=== PATIENT | male | born 1945 | race Caucasian/White ===

== ENCOUNTER → 2017-05-02 | Outpatient (CLI) | payer MEDICARE, BC ==
[2017-05-02 09:15] LABS: BASO % 0 % (0-3); EOS # 0.1 x10^3/uL (0.0-0.7); EOS % 1 % (0-3); HEMATOCRIT 42.4 % (39.0-53.0); HEMOGLOBIN 14.4 g/dL (13.0-17.5); LYMPH # 0.6 x10^3/uL (1.0-4.8); LYMPH % 9 % (24-48); MEAN CORPUSCULAR HEMOGLOBIN 32 pg (25-35); MEAN CORPUSCULAR HGB CONC 34 g/dL (31-37); MEAN CORPUSCULAR VOLUME 94 fL (79-100); MONO # 0.3 x10^3/uL (0.0-1.1); MONO % 4 % (0-9); NEUT # 6.1 x10^3uL (1.8-7.7); NEUT % 86 % (31-73); PLATELET COUNT 194 x10^3/uL (140-400); RED BLOOD COUNT 4.49 x10^6/uL (4.30-5.70); WHITE BLOOD COUNT 7.1 x10^3/uL (4.0-11.0)
[2017-05-02 09:22] LABS: ALBUMIN 3.2 g/dL (3.4-5.0); CALCIUM 8.5 mg/dL (8.5-10.1); CREATININE 1.3 mg/dL (0.7-1.3); GFR 54.7; POTASSIUM 3.5 mmol/L (3.5-5.1); TOTAL BILIRUBIN 0.4 mg/dL (0.2-1.0); TOTAL PROTEIN 6.4 g/dL (6.4-8.2)
[2017-05-02 10:20] LABS: SEDIMENTATION RATE 6 (0-15)
== END | disposition home or self-care (01) ==
LOC: PMG 08:23
PROVIDERS: ATTEND Physician Assistant
DX: R10.9 Unspecified abdominal pain (principal)
CPT/HCPCS: 36415; 80053; 82150; 83690; 85025; 85651

== ENCOUNTER 2019-08-27 08:49 | Inpatient (IN) | payer MEDICARE, BC ==
[~2019-08-27] VITALS: Ht 182.9 cm; Wt 89.5 kg
[2019-08-27] VITALS (12 sets, daily range): BP systolic 82–145; BP diastolic 50–81
[2019-08-27] MEDS ORDERED: IV NORMAL SALINE 1,000ML 1,000 ML IV ONE ×2 (09:15→16:45)
[2019-08-27] MEDS ORDERED: ONDANSETRON PF 4 MG/2 ML VIAL. ONE (09:26)
[2019-08-27] MEDS ORDERED: ONDANSETRON PF 4 MG/2 ML VIAL. IVP ONE (09:30)
--- NOTE | 2019-08-27 09:44 | PHYS DOC ---
Past History Past Medical History: Asthma, GERD, Other Additional Past Medical Histor: LOW TESTERONE Past Surgical History: Other Additional Past Surgical Histo: WRIST SURGERY Alcohol Use: None General Adult EDM: Chief Complaint: FEVER HPI: HPI: 73-year-old male presents with fever. The patient had a prostate biopsy as an outpatient yesterday. About midnight, the patient woke up with chills and thought he might of a fever. He measured a fever of 101. He did not take any antipyretics. When he woke up this morning, he still was feeling chilled and had a runny nose. He is breathing faster than normal, but denies shortness of breath. He does not have a cough. His temperature on arrival was 99. The patient did take prophylactic Levaquin before and after the procedure. He denies any significant rectal pain, discharge or bleeding. He has no known COVID 19 exposures or risk factors. He has been out of the house, going to the store a few times. Review of Systems: Review of Systems: Constitutional: Fever and chills Eyes: Denies change in visual acuity HENT: Runny nose Respiratory: Denies cough or shortness of breath Cardiovascular: Denies chest pain or edema GI: Nausea. Denies abdominal pain, vomiting, bloody stools or diarrhea : Denies dysuria Musculoskeletal: Denies back pain or joint pain Integument: Denies rash Neurologic: Denies headache, focal weakness or sensory changes Endocrine: Denies polyuria or polydipsia Lymphatic: Denies swollen glands Psychiatric: Denies depression or anxiety Heart Score: Risk Factors: Risk Factors: DM, Current or recent (<one month) smoker, HTN, HLP, family history of CAD, obesity. Risk Scores: Score 0 - 3: 2.5% MACE over next 6 weeks - Discharge Home Score 4 - 6: 20.3% MACE over next 6 weeks - Admit for Clinical Observation Score 7 - 10: 72.7% MACE over next 6 weeks - Early Invasive Strategies Current Medications: Current Meds: Current Medications Medications (Trade) Dose Ordered Sig/Lorelei Start Time Stop Time Status Last Admin Dose Admin Ondansetron HCl (Zofran) 4 mg STK-MED ONCE 08/27/19 09:26 08/27/19 09:26 DC Sodium Chloride 1,000 ml @ 1,000 mls/hr 1X ONCE 08/27/19 09:15 08/27/19 10:14 Allergies: Allergies: Allergies Coded Allergies Type Severity Reaction Last Updated Verified No Known Drug Allergies 08/27/19 No Physical Exam: PE: Constitutional: Well developed, well nourished, no acute distress, non-toxic appearance. [] HENT: Normocephalic, atraumatic, bilateral external ears normal, oropharynx moist, no oral exudates, nose normal. [] Eyes: PERRLA, EOMI, conjunctiva normal, no discharge. [] Neck: Normal range of motion, no tenderness, supple, no stridor. [] Cardiovascular:Heart rate 107, regular rhythm, no murmur [] Lungs & Thorax: breathing 25x a minute, regular, without difficulty. Bilateral breath sounds clear to auscultation [] Abdomen: Bowel sounds normal, soft, no tenderness, no masses, no pulsatile masses. [] Skin: Warm, dry, no erythema, no rash. [] Back: No tenderness, no CVA tenderness. [] Extremities: No tenderness, no cyanosis, no clubbing, ROM intact, no edema. [] Neurologic: Alert and oriented X 3, normal motor function, normal sensory function, no focal deficits noted. [] Psychologic: Affect normal, judgement normal, mood normal. [] Current Patient Data: Vital Signs: Vital Signs Date Time Temp Pulse Resp B/P (MAP) Pulse Ox O2 Delivery O2 Flow Rate FiO2 08/27/19 09:03 99.8 95 18 151/81 (104) 95 Room Air EKG: EKG: [] Radiology/Procedures: Radiology/Procedures: [] Impressions: CHEST AP ONLY Clinical indications: Shortness of breath. COMPARISON: July 18, 2015. Findings: No acute lung infiltrate or pleural effusion or pulmonary edema or lung mass or pneumothorax is seen. Hiatal hernia is again evident. The heart size, pulmonary vasculature, mediastinum and both carter are stable otherwise given rotation. Impression: No acute radiographic abnormality is seen. Electronically signed by: Katlyn Montero MD (08/27/2019 9:51 AM) [id number] DICTATED AND SIGNED BY: KATLYN MONTERO MD DATE: 08/27/19 0951 CC: MYNOR CORONA DO; WISAM MORROW MD ~ Course & Med Decision Making: Course & Med Decision Making Pertinent Labs and Imaging studies reviewed. (See chart for details) The patient's labs are unremarkable except for slightly elevated creatinine 1.5. The only comparison is a few years ago at 1.3. The patient does have a high respiratory rate. We have given him a liter normal saline. His heart rate has increased despite the fluids. A second recheck of his temperature was still nor mal. He was tested for coronavirus out of an abundance of caution as we are unsure why he had a fever last night and abnormal vitals today. The patient's heart rate continued to increase and the patient seemed more altered. We checked his temperature a third time and found him to have a temperature 100.5. Patient now meets sepsis criteria. I spoke with Dr. Daniels, his urologist to perform the procedure yesterday and he is concerned that the patient could develop an infection from the procedure. He has recommended Rocephin and admission. I spoke with Dr. Plasencia and he has accepted the patient for admission to the ICU. Blood cultures, lactic acid, 1 g of Rocephin, and the rest of his 30 mL/kg of actual weight fluids have been ordered. I believe he is low risk for coronavirus and this is most likely urosepsis. I feel the full fluid bolus is justified at this time. Patient also got a gram of Tylenol. 51 minutes of critical care time was spent on this patient exclusive of other billable procedures. [] Dragon Disclaimer: Dragon Disclaimer: This electronic medical record was generated, in whole or in part, using a voice recognition dictation system. Departure Departure: Impression: Primary Impression: Sepsis Qualified Codes: A41.9 - Sepsis, unspecified organism Disposition: ADMITTED INPATIENT Admitting Physician: Felicia Plasencia Condition: GUARDED Referrals: WISAM MORROW MD (PCP) Sepsis Assessment: Date and Time of Assessment Date: Aug 27, 2019 Time: 10:41 Vital Signs Vital Signs Vital Signs Date Time Temp Pulse Resp B/P (MAP) Pulse Ox O2 Delivery O2 Flow Rate FiO2 08/27/19 11:41 100.5 08/27/19 11:32 121 48 132/73 (92) 95 Room Air Respirations Respiratory Effort: Normal Respiratory Pattern: Normal Cardiovascular Pulse Rhythm: Regular HEART: No murmurs noted Lung Sounds Breath Sounds: Clear Capillary Refill Capillary Refill: Rt Hand < 3 seconds Peripheral Pulse Pulse Location: Monitor Pulse Strength: Normal (2+) Pulse Assessment Method: Monitor Integumentary Skin: Warm Skin Moisture: Dry Skin Turgor: Normal Skin Color: warm Fingernail Color: WNL Sepsis Assessment: Date and Time of Assessment Date: Aug 27, 2019 Time: 12:02 Vital Signs Vital Signs Vital Signs Date Time Temp Pulse Resp B/P (MAP) Pulse Ox O2 Delivery O2 Flow Rate FiO2 08/27/19 11:41 100.5 08/27/19 11:32 121 48 132/73 (92) 95 Room Air Respirations Respiratory Effort: Shortness of air Respiratory Pattern: Normal Cardiovascular Pulse Rhythm: Regular HEART: No murmurs noted Lung Sounds Breath Sounds: Clear Capillary Refill Capillary Refill: Rt Hand < 3 seconds Peripheral Pulse Pulse Location: Monitor Pulse Strength: Normal (2+) Pulse Assessment Method: Monitor Integumentary Skin: Warm Skin Moisture: Dry Skin Turgor: Normal Skin Color: warm Fingernail Color: WNL MYNOR CORONA DO Aug 27, 2019 09:44
--- NOTE | 2019-08-27 09:54 | RAD ---
CHEST AP ONLY Clinical indications: Shortness of breath. COMPARISON: July 18, 2015. Findings: No acute lung infiltrate or pleural effusion or pulmonary edema or lung mass or pneumothorax is seen. Hiatal hernia is again evident. The heart size, pulmonary vasculature, mediastinum and both carter are stable otherwise given rotation. Impression: No acute radiographic abnormality is seen. Electronically signed by: Joe Montero MD (08/27/2019 9:51 AM) [id number]
[2019-08-27 10:03] LABS: BASO % 0 % (0-3); EOS % 0 % (0-3); HEMATOCRIT 42.8 % (39.0-53.0); HEMOGLOBIN 14.1 g/dL (13.0-17.5); LYMPH # 0.1 x10^3/uL (1.0-4.8); LYMPH % 2 % (24-48); MEAN CORPUSCULAR HEMOGLOBIN 32 pg (25-35); MEAN CORPUSCULAR HGB CONC 33 g/dL (31-37); MEAN CORPUSCULAR VOLUME 96 fL (79-100); MONO % 0 % (0-9); NEUT # 4.4 x10^3uL (1.8-7.7); NEUT % 97 % (31-73); PLATELET COUNT 137 x10^3/uL (140-400); RED BLOOD COUNT 4.48 x10^6/uL (4.30-5.70); RED CELL DISTRIBUTION WIDTH 14.6 % (11.5-14.5); WHITE BLOOD COUNT 4.5 x10^3/uL (4.0-11.0)
[2019-08-27 10:11] LABS: CREATININE 1.5 mg/dL (0.7-1.3); GFR 46.1; POTASSIUM 4.4 mmol/L (3.5-5.1)
[2019-08-27 10:18] LABS: ALBUMIN 3.2 g/dL (3.4-5.0); ALBUMIN/GLOBULIN RATIO 1.1 (1.0-1.7)
[2019-08-27] MEDS ORDERED: PROCHLORPERAZINE 10 MG/2 ML VIAL. ONE (10:41)
[2019-08-27] MEDS ORDERED: PROCHLORPERAZINE 10 MG/2 ML VIAL. IV ONE (10:45)
[2019-08-27] MEDS ORDERED: IV NORMAL SALINE 50ML 50 ML ONE (11:26)
[2019-08-27] MEDS ORDERED: cefTRIAXone SODIUM 1 GM VIAL ONE (11:26)
[2019-08-27] MEDS ORDERED: IOHEXOL 300 MG/ML 75 ML VIAL. IV ONE (11:30)
[2019-08-27] MEDS ORDERED: ACETAMINOPHEN 500 MG TABLET PO ONE ×2 (11:56→12:00)
[2019-08-27] MEDS ORDERED: NORMAL SALINE IV SCH (12:15)
--- NOTE | 2019-08-27 12:19 | RAD ---
CT ABD PELV W/ IV CONTRST ONLY History: Fever. Recent prostate biopsy. Technique: After the administration of intravenous contrast, CT imaging was performed of the abdomen and pelvis. Multiplanar images are reviewed. Exposure: One or more of the following individualized dose reduction techniques were utilized for this examination: 1. Automated exposure control 2. Adjustment of the mA and/or kV according to patient size 3. Use of iterative reconstruction technique. Comparison: None Findings: Evaluation degraded by respiratory motion. Lower chest: No consolidation or pleural effusion. Moderate hiatal hernia. Of fluid within the distal esophagus. Abdomen and pelvis: Right hepatic lobe cyst measures 6.7 cm. Additional tiny left hepatic lobe hypodensity, too small to further characterize. The spleen, adrenal glands, pancreas and gallbladder are unremarkable. No biliary ductal dilatation. Mild nonspecific perinephric stranding. No hydronephrosis. No intrarenal calculi. Mild urinary bladder wall thickening. Enlarged prostate with calcifications tissues up to 6.6 x 5.2 cm. There is inflammatory changes adjacent to the prostate within the pelvis. Normal appendix. No evidence of bowel obstruction. No pathologic lymphadenopathy. No ascites. Bones: No pathologic osseous lesions. Impression: 1. Enlarged prostate with adjacent inflammatory changes, may indicate prostatitis. 2. Mild urinary bladder wall thickening, may relate to chronic outlet obstruction. Correlate for cystitis. 3. Mild nonspecific bilateral perinephric stranding, may relate to patient's age. Correlate for infection. 4. Hiatal hernia with fluid in the distal esophagus likely related to reflux. Electronically signed by: Elvin Baez DO (08/27/2019 12:15 PM) [id number]
[2019-08-27 12:42] LABS: CLARITY,URINE TURBID; COLOR,URINE RED
[2019-08-27 12:44] LABS: BACTERIA,URINE FEW /HPF (0-FEW); RBC,URINE TNTC /HPF (0-2); SQUAMOUS EPITHELIAL CELL,UR FEW /LPF
[2019-08-27] MEDS ORDERED: LANS30CA66 PO (13:11)
[2019-08-27] MEDS ORDERED: ALBU2.5V8 IH (13:11)
[2019-08-27] MEDS ORDERED: TEST200V3 IM (13:11)
[2019-08-27] MEDS ORDERED: ALBUTEROL SULFATE 2.5 MG/3 ML NEBU. IH PRN (13:45)
--- NOTE | 2019-08-27 13:45 | NUR ---
The patient, ARIE MARTINEZ, 73 y/o, M admitted by ETHAN STERLING MD, was given written information regarding hospital policies, unit procedures and contact persons. Valuables were checked and left in room. Patient oriented to unit and call light system. Dr sterling notified of arrival and of CTA. Remains on Fluid bolus on arrival to unit per sepsis protocol. Will obtain vitals per protocol
--- NOTE | 2019-08-27 14:13 | NUR ---
Patient resting in bed at this time, Dr Plasencia here to see patient and stated he is currently to sleepy to discuss information at this time. Patient received Ativan prior to arrival to unit. Per ED patient was urinating in sink, confused and anxious. Per ANDER Terrell during arrival to unit, Patient was cooperative with care and able to communicate nurses answers appropriately.
[2019-08-27] MEDS: IV NORMAL SALINE 1,000ML 1,000 ML IV SCH ×2 (15:15→23:00)
--- NOTE | 2019-08-27 15:29 | HP ---
ADMIT DATE: 08/27/2019 HISTORY OF PRESENT ILLNESS: The patient is a 73-year-old patient who presented to the Emergency Room with complaint of fever. He apparently had a prostate biopsy as an outpatient yesterday. About midnight, the patient woke up with chills and he thought he might have a fever. He measured, his temperature was 101. He did not take any antibiotics. When he woke up this morning, he still was feeling chilled and had a runny nose. He is breathing faster than normal, but denies any shortness of breath. He does not have any cough. His temperature on arrival was 99. He had prophylactic Levaquin before and after the procedure. He denies any significant rectal pain, discharge or bleeding. He has no known COVID-19 exposure risk factors, has been out of the house going to store a few times. He was extensively investigated in the Emergency Room. His chest x-ray showed no acute radiographic abnormalities seen. Has had lab work done, showed his white cell count was normal. He has thrombocytopenia. His chemistry showed that he has had impaired kidney function, has also lactic acidosis and his urinalysis showed too numerous to count rbc's, as well as 5-10 wbc's and few bacteria. Apparently, the ER physician spoke with Dr. Lima, his urologist who performed a biopsy yesterday and he was concerned that the patient could develop an infection from the procedure and has recommended Rocephin on admission and therefore, the patient was admitted with sepsis, with lactic acidosis, likely due to urinary tract infection. He was also started on 30 mL ____ fluid ordered. Unfortunately, he apparently was given 1 mg of Ativan prior to transfer to the ICU, and I could not really get much information from him. However, was more awake when the nursing staff asked him and apparently he is known to have bronchial asthma, gastroesophageal reflux disease, hypogonadism, and benign prostatic hypertrophy. PAST SURGICAL HISTORY: Significant for carpal tunnel syndrome as well as recent prostate biopsy. ALLERGIES: He has no known drug allergies. MEDICATIONS: He is currently on albuterol sulfate 2 puffs every 4-6 hours, lansoprazole 30 mg daily and testosterone cypionate 200 mg 1 mL vial every 2 weeks. FAMILY HISTORY: Unremarkable. SOCIAL HISTORY: He is , has grown up children. He has never smoked, does not drink alcohol or use any recreational drugs. PHYSICAL EXAMINATION: GENERAL: On arrival to the Emergency Room, he was well-developed, well-nourished, in no acute distress. There was no pallor, jaundice, cyanosis or thyromegaly. No jugular venous distention or limb edema. VITAL SIGNS: His heart rate was 95, blood pressure 151/81, temperature was 99.8, respiratory rate was 18 and oxygen saturation was 95%. HEAD, EYES, EARS, NOSE AND THROAT: Normocephalic, atraumatic. NECK: Supple. HEART: Showed normal first and second heart sounds. No gallop or murmur. CHEST: Clear to auscultation. No crepitation or rhonchi. ABDOMEN: Distended, soft, nontender. No guarding or rigidity. No organomegaly. All hernial orifice intact. Bowel sounds normal. NEUROLOGIC: He was very lethargic as well as given 1 mg of Ativan; however, all his cranial nerves seem to be grossly intact. EXTREMITIES: He moves extremities without difficulty. LABORATORY DATA: His lab work on arrival to the Emergency Room showed a white cell count 4500, hemoglobin 14, hematocrit 42, MCV 96, and platelet count 257,000 with manual differential showed 97% polymorphs, 2% lymphocytes. His chemistry showed a serum sodium 139, potassium 4.4, chloride 105, bicarbonate 27, anion gap of 7, BUN 22, creatinine 1.5, estimated GFR was 56 mL per minute. His glucose 165. Lactic acid was 3.2, calcium was 8. Total bilirubin, AST, ALT, alkaline phosphatase were normal. Total protein 6, albumin was 3.2. Urinalysis showed the urine was red with too numerous to count rbc's, 5-10 wbc's, very few bacteria. His chest x-ray showed no acute lung infiltrate or pleural effusion, pulmonary edema or lung mass or pneumothorax is seen. Hiatal hernia is again evident. The heart size, pulmonary vasculature, mediastinum and both carter are stable, otherwise ____. We did a CT scan of the abdomen and pelvis with IV contrast, which basically showed that there is enlarged prostate with adjacent inflammatory changes and indicate prostatitis. IMPRESSION AND PLAN: 1. Mild urinary bladder wall thickening, may relate to chronic outlet obstruction. He has also mild nonspecific bilateral perinephric stranding, may relate to the patient's age and hiatal hernia with fluid in the distal esophagus, likely related to reflux. The patient was admitted with diagnosis of urosepsis due to urinary tract infection with lactic acidosis, After obtaining the appropriate cultures, he was started on IV Rocephin together with IV fluid. Other medical problems include Bronchial asthma. 2. Gastroesophageal reflux disease, hepatitis C, and hypogonadism. 3. Benign prostatic hypertrophy. I will reconcile all his medication. We will continue with IV fluid and also IV Rocephin. ETHAN STERLING MD DR: CATA/brown JOB#: [id number] / [id number]
[2019-08-27] MEDS: ACETAMINOPHEN 325 MG TABLET PO PRN ×2 (16:09→23:00)
[2019-08-27] MEDS ORDERED: NOREPINEPHRINE BITARTRATE 8 MG in IV DEXTROSE 5% 250 ML IV PRN (16:45)
--- NOTE | 2019-08-27 17:57 | NUR ---
Patient blood pressure decreased 80/50s, patient stable and appears to not be in any distress. Patient O2 low 90s, placed on 2l NC and increased to 95%. Notified Dr Plasencia of patients blood pressure, stated patient in finishing 2753 fluid bolus and has 753 left. Orders to give 1L NS bolus and change patient to zosyn, dc rocephin and place [address] cath with CBI due to blood tinged urine.
--- NOTE | 2019-08-27 18:03 | NUR ---
Orders also for PRN Levophed if fluid bolus does not help patients BP. Patient Vitals stable at this time. Patient sitting up eating supper at this time and is asking for his phone.
[2019-08-27] MEDS: PIPERACILLIN/TAZOBACTAM 3.375 GM in IV NORMAL SALINE 50ML 50 ML IV SCH ×2 (18:18→23:01)
[2019-08-28] VITALS (24 sets, daily range): BP systolic 88–132; BP diastolic 53–78
[2019-08-28 05:05] LABS: HEMATOCRIT 40.3 % (39.0-53.0); RED BLOOD COUNT 4.22 x10^6/uL (4.30-5.70); RED CELL DISTRIBUTION WIDTH 15.1 % (11.5-14.5); WHITE BLOOD COUNT 12.6 x10^3/uL (4.0-11.0)
[2019-08-28] MEDS: PIPERACILLIN/TAZOBACTAM 3.375 GM in IV NORMAL SALINE 50ML 50 ML IV SCH ×2 (05:49→13:44)
[2019-08-28] MEDS: IV NORMAL SALINE 1,000ML 1,000 ML IV SCH ×3 (05:50→20:48)
[2019-08-28 05:51] LABS: ALBUMIN 2.4 g/dL (3.4-5.0); ALBUMIN/GLOBULIN RATIO 0.9 (1.0-1.7); CALCIUM 7.2 mg/dL (8.5-10.1); CREATININE 2.3 mg/dL (0.7-1.3); GFR 28.2; POTASSIUM 4.6 mmol/L (3.5-5.1); TOTAL BILIRUBIN 0.6 mg/dL (0.2-1.0); TOTAL PROTEIN 5.1 g/dL (6.4-8.2)
--- NOTE | 2019-08-28 06:00 | NUR ---
Pt calm and cooperative with assessment and cares. Pt without temp higher then 99.7 this shift. HR improved, down to 70-80's when sleeping. Pt denies pain. 3-way Driscoll with díaz to feli urine improved with PRN bladder irrigation. BP maintained above MAP greater then 65, no need for Levophed gtt this shift. Pt assisted up to toilet for BM this AM, no blood noted. Pt slept fair during night.
[2019-08-28] MEDS: PANTOPRAZOLE 40 MG TABLET. PO SCH (07:46)
[2019-08-28] MEDS ORDERED: NON FORMULARY ITEM (Lansoprazole (Prevacid) 1 CAP) PO SCH (09:00)
--- NOTE | 2019-08-28 16:05 | NUR ---
Pt calm and cooperative with adls and care, denies complaints of pain or discomfort. Dr Valencia called to check on patient today, states that biopsy results will be in next week. Pt without temp higher then 99.1 this shift, BP remains stable so far this shift. Continues to have 3-way Driscoll with straw urine which is improved from yesterday with PRN bladder irrigation. Continues on IV fluids and zosyn for urosepsis, negative for COVID 19. Awaiting for Dr Plasencia to see patient, may plan to transfer patient to med surg floor.
[2019-08-28] MEDS ORDERED: DIGOXIN IV 500 MCG/2 ML AMPUL. IV ONE (18:00)
[2019-08-28] MEDS ORDERED: dilTIAZem 25 MG/5 ML VIAL IVP ONE ×2 (18:00→18:15)
--- NOTE | 2019-08-28 18:10 | EKG ---
[address] [address] Test Date: 2019-08-28 Test Time: 17:58:08 Pat Name: ARIE MARTINEZ Department: Room: ICU02 1 Gender: M Vessel Scrapper: : [id number] Requested By: ETHAN STERLING Order Number: [id number] Reading MD: Brenton Campbell MD Measurements Intervals [place] Rate: 138 P: RI: QRS: -21 QRSD: 84 T: 24 QT: 334 QTc: 514 Interpretive Statements ATRIAL FIBRILLATION WITH RVR NON-SPECIFIC ST/T CHANGES Electronically Signed On 08-31-2019 9:38:42 CDT by Brenton Campbell MD
[2019-08-28 18:12] LABS: HEMATOCRIT 40.1 % (39.0-53.0); HEMOGLOBIN 13.1 g/dL (13.0-17.5); RED BLOOD COUNT 4.21 x10^6/uL (4.30-5.70); RED CELL DISTRIBUTION WIDTH 14.8 % (11.5-14.5); WHITE BLOOD COUNT 12.6 x10^3/uL (4.0-11.0)
--- NOTE | 2019-08-28 18:15 | NUR ---
PIANO MECHANIC APPRENTICE in room and stated patient vomited, nurse saw patients HR in the 150s. Stat EKG placed by nursing jewelry department supervisor. Patient states he can feel some fluttering, denies SOA or dyspnea. eeg technologist notified to draw stat labs. Dr STERLING notified of patients condition.
[2019-08-28 18:20] LABS: CALCIUM 7.6 mg/dL (8.5-10.1); CREATININE 1.7 mg/dL (0.7-1.3); GFR 39.9
[2019-08-28] MEDS: dilTIAZem VIAL 125 MG in IV NORMAL SALINE 100ML 100 ML IV PRN (18:26)
[2019-08-28] MEDS ORDERED: MAGNESIUM SULFATE 2GM 50 ML IV ONE (18:45)
--- NOTE | 2019-08-28 18:50 | NUR ---
Dig 500 given, EKG confirms AFIB RVR. Patient placed on cardizem gtt with 20mg bolus. Patient tolerated and vitals remain stable.
--- NOTE | 2019-08-28 19:00 | NUR ---
Dr Plasencia notified of Elevated troponin and labs, no orders at this time. Mag ordered per protocol. Cardiology consulted and notified of patients condition.
--- NOTE | 2019-08-28 19:30 | NUR ---
Report given to Gwendolyn at this time, Patient remains on Cardizem gtt. Vitals stable and patient resting in bed at this time sleeping. HR 90s-110s and blood pressure stable.
--- NOTE | 2019-08-28 19:34 | PN ---
DATE: 08/28/2019 SUBJECTIVE: The patient is resting, slightly propped up in bed, in no apparent distress. He is awake, alert, responding appropriately. On questioning him, he denied any complaint. The nursing staff stated that he had an uneventful night. PHYSICAL EXAMINATION: GENERAL: When I examined him, he looked somewhat pale. No jaundice, cyanosis or thyromegaly. No jugular venous distention. No lower limb edema. VITAL SIGNS: His heart rate was 96, blood pressure was 132/78, temperature was 98.1, respiratory rate was 35, and oxygen saturation was 96% on 2 liters of oxygen. HEAD, EYES, EARS, NOSE AND THROAT: Showed normocephalic, atraumatic. NECK: Supple. HEART: Showed normal first and second heart sounds. No gallop, rub or murmur. CHEST: Clear to auscultation. No crepitation or rhonchi. ABDOMEN: Distended, soft, nontender. No guarding or rigidity. No organomegaly. All hernial orifice intact. Bowel sounds normal. NEUROLOGIC: He was awake, alert, responding appropriately. All cranial nerves are intact. He moves extremities without difficulty. His intake over the last 24 hours was 7820, output was 3250. LABORATORY DATA: Showed a white cell count of 12,600, hemoglobin 13, hematocrit 40, MCV 96, and platelet count of 75,000. His serum sodium was 141, potassium 4.6, chloride 110, bicarbonate 21, anion gap of 10, BUN 34, creatinine 2.3, estimated GFR was 28 mL per minute, his glucose 147, and calcium was 7.2. Total bilirubin is normal. AST slightly elevated. ALT and alkaline phosphatase normal. Total protein 5.1, albumin was 2.4. Urinalysis showed too numerous to count rbc's, 5-10 wbc's, and very few bacteria. Apparently, his COVID, CEPV-mmeyjeiahas-4 RNA was negative. His blood cultures are negative. ASSESSMENT: 1. Sepsis due to urinary tract infection following a prostate biopsy with lactic acidosis. Unfortunately, his lab works are actually worsening. He has now acute on chronic kidney injury. His creatinine is up to 2.3. He has also leukocytosis and marked thrombocytopenia; however, his MYXL-iylioobsfja-6 RNA and SARS RNA are both negative. PLAN: My plan is to continue with IV fluid and continue with IV. I will cut down the piperacillin and goes to continue to monitor his lab work and transfer him to the floor. ETHAN STERLING MD DR: CATA/brown JOB#: [id number] / [id number]
[2019-08-28] MEDS: LACTOBACILLUS RHAMNOSUS GG 1 CAPSULE. PO SCH (19:47)
[2019-08-28] MEDS: PIPERACILLIN/TAZOBACTAM 2.25 GM in IV NORMAL SALINE 50ML 50 ML IV SCH (22:00)
[2019-08-29] VITALS (11 sets, daily range): BP systolic 116–159; BP diastolic 63–96
[2019-08-29] MEDS: dilTIAZem VIAL 125 MG in IV NORMAL SALINE 100ML 100 ML IV PRN (01:17)
[2019-08-29] MEDS: ACETAMINOPHEN 325 MG TABLET PO PRN (05:19)
[2019-08-29] MEDS: PIPERACILLIN/TAZOBACTAM 2.25 GM in IV NORMAL SALINE 50ML 50 ML IV SCH ×3 (05:52→21:56)
[2019-08-29] MEDS: IV NORMAL SALINE 1,000ML 1,000 ML IV SCH ×3 (05:52→21:56)
--- NOTE | 2019-08-29 06:17 | NUR ---
Pt. remained rate controlled in A.fib after 2030 throughout the rest of the night. Otherwise pt. remained afebrile with mild complaints related to urinary/ prostate pain with catheter and very slow CBI throughout the night.
[2019-08-29 06:23] LABS: HEMATOCRIT 38.5 % (39.0-53.0); HEMOGLOBIN 12.3 g/dL (13.0-17.5); RED BLOOD COUNT 4.05 x10^6/uL (4.30-5.70); RED CELL DISTRIBUTION WIDTH 14.9 % (11.5-14.5); WHITE BLOOD COUNT 11.9 x10^3/uL (4.0-11.0)
[2019-08-29 06:36] LABS: ALBUMIN/GLOBULIN RATIO 0.7 (1.0-1.7); CALCIUM 7.4 mg/dL (8.5-10.1); CREATININE 1.1 mg/dL (0.7-1.3); POTASSIUM 4.1 mmol/L (3.5-5.1); TOTAL BILIRUBIN 0.4 mg/dL (0.2-1.0); TOTAL PROTEIN 4.8 g/dL (6.4-8.2)
[2019-08-29] MEDS: LACTOBACILLUS RHAMNOSUS GG 1 CAPSULE. PO SCH ×2 (08:17→22:03)
[2019-08-29] MEDS: PANTOPRAZOLE 40 MG TABLET. PO SCH (08:17)
--- NOTE | 2019-08-29 11:43 | PDOC2 ---
CARDIAC CONSULT DATE OF CONSULT Date Of Consult DATE: 08/29/19 TIME: 11:36 REASON FOR CONSULT Reason for Consult new onset atrial fibrillation REFERRING PHYSICIAN Referring Physician Dr. Plasencia SOURCE Source: Chart review, Patient HPI History of Present Illness The patient is a 73-year-old male who was reviewed admitted through the emergency room on the secondary to a fever. On the day prior to admission the patient had had a prostate biopsy and there was concern of a possible infection status post biopsy. The patient was treated with antibiotics and IV fluids and gradually improved. He has an underlying history of asthma and gastroesophageal reflux disease. Later last night the patient went into atrial fibrillation with a rapid ventricular response rate. He was initially treated with 1 dose of IV digoxin and placed on a Cardizem drip and heparin. This controlled his rate and this morning at approximately 8:00 the patient is in a sinus rhythm. He has no known history of cardiac arrhythmias, heart failure or coronary artery disease. PAST MEDICAL HISTORY Cardiovascular: HTN Pulmonary: Asthma GI: GERD PAST SURGICAL HISTORY Past Surgical History: Other (Recent prostate biopsy and previous carpal tunnel surgery) FAMILY HISTORY Family History: No Significant SOCIAL HISTORY Smoke: No ALCOHOL: none CURRENT MEDICATIONS Current Medications Current Medications Sodium Chloride 1,000 ml @ 1,000 mls/hr 1X ONCE IV Last administered on 08/27/19at 09:00; Start 08/27/19 at 09:15; Stop 08/27/19 at 10:14; Status DC Ondansetron HCl (Zofran) 4 mg 1X ONCE IVP Last administered on 08/27/19at 09:45; Start 08/27/19 at 09:30; Stop 08/27/19 at 09:31; Status DC Ondansetron HCl (Zofran) 4 mg STK-MED ONCE .ROUTE ; Start 08/27/19 at 09:26; Stop 08/27/19 at 09:26; Status DC Prochlorperazine Edisylate (Compazine) 10 mg 1X ONCE IV Last administered on 08/27/19at 10:51; Start 08/27/19 at 10:45; Stop 08/27/19 at 10:46; Status DC Prochlorperazine Edisylate (Compazine) 10 mg STK-MED ONCE .ROUTE ; Start 08/27/19 at 10:41; Stop 08/27/19 at 10:42; Status DC Ceftriaxone Sodium 1 gm/ Sodium Chloride 50 ml @ 100 mls/hr 1X ONCE IV Last administered on 08/27/19at 11:32; Start 08/27/19 at 11:30; Stop 08/27/19 at 11:59; Status DC Iohexol (Omnipaque 300 Mg/ml) 75 ml 1X ONCE IV Last administered on 08/27/19at 11:57; Start 08/27/19 at 11:30; Stop 08/27/19 at 11:31; Status DC Sodium Chloride 50 ml @ As Directed STK-MED ONCE .ROUTE ; Start 08/27/19 at 11:26; Stop 08/27/19 at 11:26; Status DC Ceftriaxone Sodium (Rocephin) 1 gm STK-MED ONCE .ROUTE ; Start 08/27/19 at 11:26; Stop 08/27/19 at 11:26; Status DC Acetaminophen (Tylenol) 500 mg STK-MED ONCE PO ; Start 08/27/19 at 11:56; Stop 08/27/19 at 11:57; Status DC Acetaminophen (Tylenol) 1,000 mg 1X ONCE PO Last administered on 08/27/19at 12:00; Start 08/27/19 at 12:00; Stop 08/27/19 at 12:06; Status DC Sodium Chloride 2,730 ml @ 2,730 mls/hr Q1H IV Last administered on 08/27/19at 12:15; Start 08/27/19 at 12:15; Stop 08/27/19 at 12:46; Status DC Lorazepam (Ativan Inj) 1 mg 1X ONCE IVP Last administered on 08/27/19at 12:28; Start 08/27/19 at 12:30; Stop 08/27/19 at 12:35; Status DC Albuterol Sulfate (Ventolin) 8.5 mg Q4H PRN IH wheezing Last administered on 08/28/19at 14:12; Start 08/27/19 at 13:45 Non-Formulary Medication (Lansoprazole (Prevacid)) 1 cap DAILY PO ; Start 08/28/19 at 09:00; Stop 08/27/19 at 13:52; Status DC Non-Formulary Medication (Testosterone Cypionate ) 1 ml Q2WKS IM ; Start 09/10/19 at 09:00; Status UNV Ceftriaxone Sodium 1 gm/ Sodium Chloride 50 ml @ 100 mls/hr Q24H IV ; Start 08/27/19 at 14:00; Stop 08/27/19 at 16:43; Status DC Acetaminophen (Tylenol) 650 mg Q4H PRN PO PAIN Last administered on 08/29/19at 05:19; Start 08/27/19 at 14:00 Pantoprazole Sodium (Protonix) 40 mg DAILYAC PO Last administered on 08/29/19at 08:17; Start 08/28/19 at 07:30 Sodium Chloride 1,000 ml @ 125 mls/hr Q8H IV Last administered on 08/29/19at 05 :52; Start 08/27/19 at 14:00 Piperacillin Sod/ Tazobactam Sod 3.375 gm/Sodium Chloride 50 ml @ 100 mls/hr Q8HRS IV Last administered on 08/28/19at 13:44; Start 08/27/19 at 18:00; Stop 08/28/19 at 17:10; Status DC Sodium Chloride 1,000 ml @ 1,000 mls/hr 1X ONCE IV Last administered on 08/27/19at 17:09; Start 08/27/19 at 16:45; Stop 08/27/19 at 17:44; Status DC Norepinephrine Bitartrate 8 mg/ Dextrose 258 ml @ 17.144 mls/ hr CONT PRN IV SEE I/O RECORD; Start 08/27/19 at 16:45 Piperacillin Sod/ Tazobactam Sod 2.25 gm/Sodium Chloride 50 ml @ 100 mls/hr Q8HRS IV Last administered on 08/29/19at 05:52; Start 08/28/19 at 22:00 Lactobacillus Rhamnosus (Culturelle) 1 cap BID PO Last administered on 08/29/19at 08:17; Start 08/28/19 at 21:00 Digoxin (Lanoxin) 500 mcg 1X ONCE IV Last administered on 08/28/19at 17:58; Start 08/28/19 at 18:00; Stop 08/28/19 at 18:01; Status DC Diltiazem HCl 125 mg/Sodium Chloride 125 ml @ 5 mls/hr CONT PRN IV SEE I/O RECORD Last administered on 08/29/19at 01:17; Start 08/28/19 at 18:00 Diltiazem HCl (Cardizem Iv Push) 10 mg 1X ONCE IVP ; Start 08/28/19 at 18:00; Stop 08/28/19 at 18:01; Status Cancel Diltiazem HCl (Cardizem Iv Push) 10 mg 1X ONCE IVP Last administered on 08/28/19at 18:15; Start 08/28/19 at 18:15; Stop 08/28/19 at 18:16; Status DC Magnesium Sulfate 50 ml @ 25 mls/hr 1X ONCE IV Last administered on 08/28/19at 19:50; Start 08/28/19 at 18:45; Stop 08/28/19 at 20:44; Status DC Active Scripts Active Reported Testosterone Cypionate 200 Mg/1 Ml Vial 1 Ml IM Q2WKS Proair Hfa Inhaler (Albuterol Sulfate) 8.5 Gm Hfa.aer.ad 2 Puff IH PRN Q4-6HRS PRN 21 Days Prevacid (Lansoprazole) 30 Mg Capsule.dr 1 Cap PO DAILY 30 Days ALLERGIES Allergies: Coded Allergies: No Known Drug Allergies (Unverified , 08/27/19) ROS General: YES: Chills, Fatigue PHYSICAL EXAM Physical Exam Deferred. VITALS Vital Signs Vital Signs Date Time Temp Pulse Resp B/P (MAP) Pulse Ox O2 Delivery O2 Flow Rate FiO2 08/29/19 09:00 Room Air 08/29/19 08:00 97.4 78 22 132/77 (95) 96 08/28/19 16:02 2.0 LABS LABS Laboratory Tests Test 08/27/19 11:46 08/27/19 15:41 08/28/19 03:45 08/28/19 18:03 Urine Collection Type Unknown Urine Color Red Urine Clarity Turbid Urine pH Urine Specific [place] Urine Protein (NEG-TRACE) Urine Glucose (UA) mg/dL (NEG) Urine Ketones (Stick) mg/dL (NEG) Urine Blood (NEG) Urine Nitrite (NEG) Urine Bilirubin (NEG) Urine Urobilinogen Dipstick mg/dL (0.2 mg/dL) Urine Leukocyte Esterase (NEG) Urine RBC Tntc /HPF (0-2) Urine WBC 5-10 /HPF (0-4) Urine Squamous Epithelial Cells Few /LPF Urine Bacteria Few /HPF (0-FEW) Urine Mucus Mod /LPF Lactic Acid Level 3.2 mmol/L (0.4-2.0) White Blood Count 12.6 x10^3/uL (4.0-11.0) 12.6 x10^3/uL (4.0-11.0) Red Blood Count 4.22 x10^6/uL (4.30-5.70) 4.21 x10^6/uL (4.30-5.70) Hemoglobin 13.0 g/dL (13.0-17.5) 13.1 g/dL (13.0-17.5) Hematocrit 40.3 % (39.0-53.0) 40.1 % (39.0-53.0) Mean Corpuscular Volume 96 fL (79-100) 95 fL (79-100) Mean Corpuscular Hemoglobin 31 pg (25-35) 31 pg (25-35) Mean Corpuscular Hemoglobin Concent 32 g/dL (31-37) 33 g/dL (31-37) Red Cell Distribution Width 15.1 % (11.5-14.5) 14.8 % (11.5-14.5) Platelet Count 75 x10^3/uL (140-400) 55 x10^3/uL (140-400) Sodium Level 141 mmol/L (136-145) Potassium Level 4.6 mmol/L (3.5-5.1) Chloride Level 110 mmol/L (98-107) Carbon Dioxide Level 21 mmol/L (21-32) Anion Gap 10 (6-14) Blood Urea Nitrogen 34 mg/dL (8-26) Creatinine 2.3 mg/dL (0.7-1.3) Estimated GFR (Cockcroft-Gault) 28.2 BUN/Creatinine Ratio 15 (6-20) Glucose Level 147 mg/dL (70-99) Calcium Level 7.2 mg/dL (8.5-10.1) Total Bilirubin 0.6 mg/dL (0.2-1.0) Aspartate Amino Transf (AST/SGOT) 69 U/L (15-37) Alanine Aminotransferase (ALT/SGPT) 50 U/L (16-63) Alkaline Phosphatase 44 U/L (46-116) Total Protein 5.1 g/dL (6.4-8.2) Albumin 2.4 g/dL (3.4-5.0) Albumin/Globulin Ratio 0.9 (1.0-1.7) Test 08/28/19 18:04 08/29/19 05:45 Sodium Level 139 mmol/L (136-145) 142 mmol/L (136-145) Potassium Level 4.0 mmol/L (3.5-5.1) 4.1 mmol/L (3.5-5.1) Chloride Level 108 mmol/L (98-107) 112 mmol/L (98-107) Carbon Dioxide Level 21 mmol/L (21-32) 22 mmol/L (21-32) Anion Gap 10 (6-14) 8 (6-14) Blood Urea Nitrogen 37 mg/dL (8-26) 29 mg/dL (8-26) Creatinine 1.7 mg/dL (0.7-1.3) 1.1 mg/dL (0.7-1.3) Estimated GFR (Cockcroft-Gault) 39.9 66.0 Glucose Level 184 mg/dL (70-99) 111 mg/dL (70-99) Calcium Level 7.6 mg/dL (8.5-10.1) 7.4 mg/dL (8.5-10.1) Magnesium Level 1.7 mg/dL (1.8-2.4) 2.2 mg/dL (1.8-2.4) Troponin I Quantitative 0.213 ng/mL (0-0.055) White Blood Count 11.9 x10^3/uL (4.0-11.0) Red Blood Count 4.05 x10^6/uL (4.30-5.70) Hemoglobin 12.3 g/dL (13.0-17.5) Hematocrit 38.5 % (39.0-53.0) Mean Corpuscular Volume 95 fL (79-100) Mean Corpuscular Hemoglobin 31 pg (25-35) Mean Corpuscular Hemoglobin Concent 32 g/dL (31-37) Red Cell Distribution Width 14.9 % (11.5-14.5) Platelet Count 59 x10^3/uL (140-400) BUN/Creatinine Ratio 26 (6-20) Total Bilirubin 0.4 mg/dL (0.2-1.0) Aspartate Amino Transf (AST/SGOT) 57 U/L (15-37) Alanine Aminotransferase (ALT/SGPT) 42 U/L (16-63) Alkaline Phosphatase 59 U/L (46-116) Total Protein 4.8 g/dL (6.4-8.2) Albumin 2.0 g/dL (3.4-5.0) Albumin/Globulin Ratio 0.7 (1.0-1.7) IMAGES IMAGES Chest x-ray with no acute changes. EKG check processor last night showed atrial fibrillation. Patient is now in a sinus rhythm. ASSESSMENT/PLAN Assessment/Plan 1. Urinary tract infection status post prostate biopsy. Patient has been treated with fluids and antibiotics and is feeling better. This was also reviewed by the patient's urologist. 2. Fever as noted above. History of asthma. Patient has been tested for Covid. 3. New onset of rapid atrial fibrillation. As noted above the patient was placed on IV Cardizem and converted to sinus rhythm this morning. We will continue an IV Cardizem for several more hours. If remains in sinus rhythm with then convert to oral Cardizem. Also at this time would continue heparin at least overnight monitoring whether the patient resumes atrial fibrillation. An outpatient monitor post discharge would be helpful to exclude paroxysmal atrial fibrillation although his presentation is consistent with atrial fibrillation precipitated by his underlying infection. Thank you for allowing us to participate in the care of your patient. DYAN ROGERS MD Aug 29, 2019 11:43
--- NOTE | 2019-08-29 13:18 | PN ---
DATE: 08/29/2019 SUBJECTIVE: The patient is resting, slightly propped up, eating his lunch comfortably, in no apparent distress. On questioning him, he denied any complaint. He went into atrial fibrillation with rapid ventricular response yesterday, treated initially with digoxin and eventually was given loading dose of Cardizem and Cardizem drip and he is now converted back to sinus rhythm with a heart rate of 78, blood pressure was 132/77, temperature 97.4, respiratory rate was 18 and oxygen saturation was 97%. PHYSICAL EXAMINATION: HEAD, EYES, EARS, NOSE AND THROAT: Normocephalic, atraumatic. NECK: Supple. HEART: Showed normal first and second heart sounds. No gallop or murmur. CHEST: Clear to auscultation. No crepitation or rhonchi. ABDOMEN: Distended, soft, nontender. NEUROLOGIC: He is awake, alert, responding appropriately. All cranial nerves are intact. He moves extremities without difficulty. His intake over the last 24 hours was 7800, output was 3250. LABORATORY DATA: As of this morning, his white cell count is down to 11,900, hemoglobin 12, hematocrit 38, MCV 95, and platelet count is slightly up at 59,000. His chemistry showed a serum sodium 142, potassium 4.1, chloride 112, bicarbonate 22, anion gap of 8, BUN 29, creatinine 1.1, estimated GFR was 66 mL per minute, his glucose 111, calcium was 7.4, magnesium was 2.2. Total bilirubin, AST, ALT, alkaline phosphatase were normal. Total protein was 4.8, albumin 2. His COVID-19 by PCR was negative. His urine culture showed less than 10,000 colony forming units per mL bacteria. His blood cultures showed no growth after 2 days. ASSESSMENT: 1. Sepsis due to urinary tract infection following a prostate biopsy with lactic acidosis. 2. Acute kidney injury. Creatinine has risen up to 2.3 that has resolved. His creatinine today is 1.1 3. Leukocytosis, improving. Thrombocytopenia slowly improving. It is up-to-date from 55-59. PLAN: My plan is to continue with IV fluid, continue with IV antibiotic, we will transfer the patient to the floor. I will stop the continuous bladder irrigation. Add Flomax and hopefully he can be discharged home probably either tomorrow or Saturday after we get the result of the blood culture. ETHAN STERLING MD DR: CATA/brown JOB#: [id number] / [id number]
--- NOTE | 2019-08-29 14:15 | NUR ---
CBI d/c per Dr. Zhang, pt complains of being SOB and tachypnea. Dr. zhang ordered stat chest Xray. Will CTM.
--- NOTE | 2019-08-29 14:32 | RAD ---
PORTABLE CHEST 1V INDICATION: Dyspnea. COMPARISON STUDY: 08/27/2019. FINDINGS: Lungs: Normal lung volume. No consolidation. Normal pulmonary vasculature. Pleura: No pleural effusion or pneumothorax. Heart and Mediastinum: Stable cardiomediastinal silhouette and great vessels. Large hiatal hernia. IMPRESSION: No consolidation. Large hiatal hernia. Electronically signed by: Junior Ricketts MD (08/29/2019 2:29 PM) [id number]
[2019-08-30] MEDS: PIPERACILLIN/TAZOBACTAM 2.25 GM in IV NORMAL SALINE 50ML 50 ML IV SCH ×3 (05:39→21:52)
[2019-08-30 06:04] VITALS: BP 160/90
[2019-08-30 06:35] LABS: HEMATOCRIT 36.9 % (39.0-53.0); HEMOGLOBIN 12.2 g/dL (13.0-17.5); RED BLOOD COUNT 3.95 x10^6/uL (4.30-5.70); RED CELL DISTRIBUTION WIDTH 14.5 % (11.5-14.5); WHITE BLOOD COUNT 12.5 x10^3/uL (4.0-11.0)
[2019-08-30 07:16] LABS: ALBUMIN 2.1 g/dL (3.4-5.0); ALBUMIN/GLOBULIN RATIO 0.7 (1.0-1.7); CALCIUM 7.5 mg/dL (8.5-10.1); GFR 73.7; POTASSIUM 3.8 mmol/L (3.5-5.1); TOTAL BILIRUBIN 0.4 mg/dL (0.2-1.0)
[2019-08-30] MEDS: IV NORMAL SALINE 1,000ML 1,000 ML IV SCH (07:30)
[2019-08-30] MEDS: PANTOPRAZOLE 40 MG TABLET. PO SCH (07:48)
[2019-08-30] MEDS: LACTOBACILLUS RHAMNOSUS GG 1 CAPSULE. PO SCH ×2 (07:49→21:52)
--- NOTE | 2019-08-30 11:49 | PN ---
DATE: 08/30/2019 SUBJECTIVE: The patient is sitting comfortably in his chair, in no apparent respiratory distress. On questioning him, he denied any complaint, in particular denied any chest pain, shortness of breath, cough, phlegm or hemoptysis. PHYSICAL EXAMINATION: GENERAL: When I saw him this morning, he looked somewhat pale, but no jaundice, cyanosis or thyromegaly. No jugular venous distention. No limb edema. VITAL SIGNS: His heart rate was 85, blood pressure was 160/90, temperature was 97.9, respiratory rate was 20, and oxygen saturation was 96% on room air. HEAD, EYES, EARS, NOSE AND THROAT: Showed normocephalic, atraumatic. NECK: Supple. HEART: Showed normal first and second heart sounds. No gallop or murmur. CHEST: Clear to auscultation. No crepitation or rhonchi. ABDOMEN: Distended, soft, nontender. NEUROLOGIC: He was awake, alert, responding appropriately. All cranial nerves are intact. He ambulates without assistance or assistive devices. His intake over the last 24 hours was 2410, output was 3600. LABORATORY DATA: As of this morning, his white cell count was 12,500, hemoglobin 12, hematocrit 36, MCV 94 and platelet count of 68,000. His chemistry showed a serum sodium 143, potassium 3.8, chloride 111, bicarbonate 25, anion gap of 7, BUN 21, creatinine 1, estimated GFR was 74 mL per minute, her glucose 106, calcium was 7.5, magnesium was 2.2. Total bilirubin, AST, ALT, alkaline phosphatase were normal. Total protein 5, albumin was 2.1. So far, his urine culture showed growth of less than 10,000 colony forming units of bacteria and his blood cultures are so far negative. ASSESSMENT: 1. Sepsis due to urinary tract infection following prostate biopsy with lactic acidosis, resolved. 2. Acute kidney injury, improving, his creatinine came down from 2.3 to 1. 3. Thrombocytopenia, slowly improving. It is up to 68 from 59. 4. Benign prostatic hypertrophy. He has also hypertension for which he is on diltiazem 180 mg and obviously atrial fibrillation. I will discontinue the IV fluid and we will decide on further management accordingly. ETHAN STERLING MD DR: CATA/brown JOB#: [id number] / [id number]
[2019-08-30 12:02] VITALS: BP 161/90
[2019-08-30 16:07] VITALS: BP 167/90
--- NOTE | 2019-08-30 17:21 | NUR ---
Pt alert, oriented, pleasant throughout shift; tolerable of all cares. Able to make needs known. Pt remained NSR throughout shift. Driscoll patent and draining well. Possible discharge tomorrow.
[2019-08-30 20:03] VITALS: BP 160/79
[2019-08-30] MEDS ORDERED: TAMSULOSIN 0.4 MG CAP.ER.24H. PO SCH (21:00)
[2019-08-31] MEDS: PIPERACILLIN/TAZOBACTAM 2.25 GM in IV NORMAL SALINE 50ML 50 ML IV SCH (06:00)
[2019-08-31 06:21] LABS: CALCIUM 7.7 mg/dL (8.5-10.1); CREATININE 0.9 mg/dL (0.7-1.3); GFR 83.2; POTASSIUM 3.6 mmol/L (3.5-5.1)
[2019-08-31 06:25] LABS: HEMATOCRIT 36.7 % (39.0-53.0); RED BLOOD COUNT 3.89 x10^6/uL (4.30-5.70); WHITE BLOOD COUNT 10.8 x10^3/uL (4.0-11.0)
[2019-08-31 07:20] VITALS: BP 146/97
--- NOTE | 2019-08-31 07:57 | PDOC ---
CARDIO Progress Notes Date & Time Date of Service DATE: 08/31/19 TIME: 07:49 Time of Evaluation 07:49 Subjective Notes No chest pain, SOA, palpitations Vitals Vitals Vital Signs Date Time Temp Pulse Resp B/P (MAP) Pulse Ox O2 Delivery O2 Flow Rate FiO2 08/31/19 07:20 98.4 80 18 146/97 (113) 95 Room Air 08/30/19 09:00 2.0 Weight Weight [ ] Input and Output I.O. Intake and Output 08/31/19 07:00 Intake Total 2360 ml Output Total 1500 ml Balance 860 ml Intake Oral 1260 ml IV Total 1100 ml Output Urine Total 1500 ml # Bowel Movements 1 Laboratory Labs Laboratory Tests Test 08/30/19 06:13 08/31/19 05:49 White Blood Count 12.5 x10^3/uL (4.0-11.0) 10.8 x10^3/uL (4.0-11.0) Red Blood Count 3.95 x10^6/uL (4.30-5.70) 3.89 x10^6/uL (4.30-5.70) Hemoglobin 12.2 g/dL (13.0-17.5) 12.0 g/dL (13.0-17.5) Hematocrit 36.9 % (39.0-53.0) 36.7 % (39.0-53.0) Mean Corpuscular Volume 94 fL (79-100) 94 fL (79-100) Mean Corpuscular Hemoglobin 31 pg (25-35) 31 pg (25-35) Mean Corpuscular Hemoglobin Concent 33 g/dL (31-37) 33 g/dL (31-37) Red Cell Distribution Width 14.5 % (11.5-14.5) 15.0 % (11.5-14.5) Platelet Count 68 x10^3/uL (140-400) 83 x10^3/uL (140-400) Sodium Level 143 mmol/L (136-145) 143 mmol/L (136-145) Potassium Level 3.8 mmol/L (3.5-5.1) 3.6 mmol/L (3.5-5.1) Chloride Level 111 mmol/L (98-107) 109 mmol/L (98-107) Carbon Dioxide Level 25 mmol/L (21-32) 26 mmol/L (21-32) Anion Gap 7 (6-14) 8 (6-14) Blood Urea Nitrogen 21 mg/dL (8-26) 17 mg/dL (8-26) Creatinine 1.0 mg/dL (0.7-1.3) 0.9 mg/dL (0.7-1.3) Estimated GFR (Cockcroft-Gault) 73.7 83.2 BUN/Creatinine Ratio 21 (6-20) Glucose Level 106 mg/dL (70-99) 123 mg/dL (70-99) Calcium Level 7.5 mg/dL (8.5-10.1) 7.7 mg/dL (8.5-10.1) Total Bilirubin 0.4 mg/dL (0.2-1.0) Aspartate Amino Transf (AST/SGOT) 33 U/L (15-37) Alanine Aminotransferase (ALT/SGPT) 42 U/L (16-63) Alkaline Phosphatase 63 U/L (46-116) Total Protein 5.0 g/dL (6.4-8.2) Albumin 2.1 g/dL (3.4-5.0) Albumin/Globulin Ratio 0.7 (1.0-1.7) Thyroid Stimulating Hormone (TSH) 6.236 uIU/mL (0.358-3.740) Microbiology Micro Microbiology 08/27/19 Urine Culture - Final, Complete 08/27/19 Urine Culture Result 1 ([facility]IEGO) - Final, Complete 08/27/19 Blood Culture - Preliminary, Resulted NO GROWTH AFTER 3 DAYS... Physical Exams HEENT: Neck Supple W Full Motion Chest: Symmetric Lungs: Clear to Auscultation Heart: S1S2, RRR Abdomen: Soft N/T Extremities: No Edema Neurology: alert, oriented, follow commands Assessment Assessment 1. UTI s/p prostate biopsy 2. Lactic acidosis, fevers, sepsis 3. CECY; improved . 4. AFIB with RVR; new onset in setting of above. Converted back to SR and has been maintaining. 5. Mild troponin elevation; most probable type II, demand ischemia 6. Hypothyroidism 7. Thrombocytopenia Recommendations Continue oral Cardizem for rate control Outpatient echocardiogram arranged to assess LV systolic function Event monitor to assess AFIB burden, guide therapy No ASA/OAC with thrombocytopenia Consider outpatient stress test Follow up in our office as scheduled. CIARA HSIEH APRN Aug 31, 2019 07:57
[2019-08-31] MEDS: LACTOBACILLUS RHAMNOSUS GG 1 CAPSULE. PO SCH (07:59)
[2019-08-31] MEDS: PANTOPRAZOLE 40 MG TABLET. PO SCH (07:59)
--- NOTE | 2019-08-31 09:41 | NUR ---
Driscoll catheter discontinued for voiding trial. Pt tolerated removal well.
--- NOTE | 2019-08-31 11:00 | NUR ---
Pt voided 100 mL in urinal.
[2019-08-31 12:11] VITALS: BP 167/87
[2019-08-31] MEDS ORDERED: DILT180C30 PO (13:13)
[2019-08-31] MEDS ORDERED: TAMS0.4C97 PO (13:13)
[2019-08-31] MEDS ORDERED: AMOX1TAB61 PO (13:13)
--- NOTE | 2019-08-31 13:54 | NUR ---
Pt discharged home with spouse. Discharge instructions and medications discussed with patient. Questions answered. Information on follow up appointments discussed with patient. PIV removed without complication. All belongings accounted for. No falls or injuries reported.
--- NOTE | 2019-08-31 15:10 | DS ---
DATE OF DISCHARGE: 08/31/2019 HOSPITAL COURSE: The patient is a 73-year-old male patient who was admitted originally through the Emergency Room after he underwent a prostate biopsy as an outpatient. The day before admission, the patient woke up with chills and thought he might have fever and his temperature was actually 101. When he arrived to the Emergency Room, ____ chills and runny nose. He was breathing faster than normal, but denies any shortness of breath. He does have a cough. His temperature upon arrival to the Emergency Room was 99. The patient did take a prophylactic Levaquin before and after the procedure. He denies any significant rectal pain, discharge, bleeding. He has no known COVID-19 exposure. Risk factor has been out of the house, going to store few times. He was extensively investigated in the Emergency Room. His chest x-ray showed no acute radiographic abnormality. His lab work showed that his white cell count was normal. He has thrombocytopenia. His chemistry showed he has impaired kidney function. He has lactic acidosis and urinalysis had too numerous to count rbc's, as well as 5-10 wbc's and a few bacteria. Apparently, the Emergency Room physician spoke with Dr. Lima, his urologist who performed a biopsy and apparently he was concerned that the patient might be developing an infection from the procedure and therefore we started him on Rocephin and was admitted initially with sepsis, lactic acidosis likely due to urinary tract infection. He was treated aggressively with IV fluid and his kidney function has steadily improved, in fact his creatinine came down from high of 2.3 down to 0.9 this morning. His white cell count also steadily came down from 12.6 to 10.8. He has had thrombocytopenia that has been improving steadily from as low as 55 and today is 83,000. His COVID-19 by PCR was negative and so far his urine culture is negative and blood cultures showed no growth after 4 days. As he remained hemodynamically stable, afebrile, and was able to void without difficulty after we removed his Driscoll catheter, a decision was made to discharge him home with home health. PHYSICAL EXAMINATION: GENERAL: When I saw him today, he looked well and was clearly in no apparent respiratory distress. No pallor, jaundice, cyanosis or thyromegaly. No jugular venous distention. No limb edema. VITAL SIGNS: Her heart rate was 75, blood pressure was 167/87, temperature was 98.2, respiratory rate 20, and oxygen saturation was 98% on 2 liters of oxygen. HEAD, EYES, EARS, NOSE AND THROAT: Normocephalic, atraumatic. NECK: Supple. HEART: Showed normal first and second heart sounds. No gallop or murmur. CHEST: Clear to auscultation. No crepitation or rhonchi. ABDOMEN: Distended, soft, nontender. No guarding or rigidity. No organomegaly. All hernial orifice intact. Bowel sounds normal. NEUROLOGIC: He is awake, alert, responding appropriately. All cranial nerves intact. EXTREMITIES: He moves extremities without difficulty. He ambulates without assistance or assistive devices. LABORATORY DATA: This morning showed a white cell count of 10,800, hemoglobin 12, hematocrit 36, MCV 94 and platelet count of 83,000. Serum sodium was 143, potassium 3.6, chloride 109, bicarbonate 26, anion gap of 8, BUN 17, creatinine 0.9, estimated GFR was 83 mL per minute. His glucose was 123, calcium was 7.7. DISCHARGE MEDICATIONS: He was discharged home to continue on Augmentin 875 mg twice a day with food for 7 more days, diltiazem CD 180 mg once a day, tamsulosin for Flomax 0.4 mg at bedtime. Should continue his albuterol sulfate for ProAir 2 puffs every 4-6 hours, lansoprazole for Prevacid 30 mg once a day and testosterone cypionate 200 mg ____ vial takes twice a week on Saturday and Saturday. FINAL DISCHARGE DIAGNOSES: 1. Sepsis, likely due to urinary tract infection, resolved. 2. Acute kidney injury, resolved. 3. Atrial fibrillation with rapid ventricular response. The patient converted to sinus rhythm. He is now on Cardizem CD 180 mg once a day. Other medical problems include benign prostatic hypertrophy, hypogonadism and gastroesophageal reflux disease. ETHAN STERLING MD DR: CATA/brown JOB#: [id number] / [id number]
[2019-09-10] MEDS ORDERED: NON FORMULARY ITEM (Testosterone Cypionate 1 ML) IM SCH (09:00)
== END 2019-08-31 13:59 | disposition home health service (06) | DRG 871 ==
LOC: ER 08:49 → ICU 11:20 → 1 SOUTH 08-29 18:00
PROVIDERS: ADMIT Internal Medicine; ATTEND Internal Medicine
DX: A41.9 Sepsis, unspecified organism (principal); N17.0 Acute kidney failure with tubular necrosis; I24.8 Other forms of acute ischemic heart disease; N39.0 Urinary tract infection, site not specified; B19.20 Unspecified viral hepatitis C without hepatic coma; D69.6 Thrombocytopenia, unspecified; E03.9 Hypothyroidism, unspecified; E29.1 Testicular hypofunction; I12.9 Hypertensive chronic kidney disease with stage 1 through stage 4 chronic kidney disease, or unspecified chronic kidney disease; I48.91 Unspecified atrial fibrillation; J45.909 Unspecified asthma, uncomplicated; K21.9 Gastro-esophageal reflux disease without esophagitis; K44.9 Diaphragmatic hernia without obstruction or gangrene; N18.9 Chronic kidney disease, unspecified; N40.0 Benign prostatic hyperplasia without lower urinary tract symptoms; Z79.899 Other long term (current) drug therapy; G56.00 Carpal tunnel syndrome, unspecified upper limb; Z20.828 Contact with and (suspected) exposure to other viral communicable diseases
CPT/HCPCS: 36415; 71045; 74177; 80048; 80053; 81001; 83605; 83735; 84443; 84484; 85025; 85027; 87040; 87086; 93005; 96361; 96365; 96375; J0696; J0780; J1160; J2060; J2405; J2543; J3475; J3490; Q9967; 99291-25; J7030; J7613

== ENCOUNTER → 2019-11-10 | Outpatient (CLI) | payer MEDICARE, BC ==
[~2019-11-10] MED LIST: ALBU2.5V8 IH; AMOX1TAB61 PO; DILT180C30 PO; LANS30CA66 PO; TAMS0.4C97 PO; TEST200V3 IM
--- NOTE | 2019-11-10 12:11 | CARD ---
MR#: [id number] Date of Study: 11/10/2019 Ordering Physician: MICHELLE YOUNGBLOOD, Referring Physician: MICHELLE YOUNGBLOOD, Tech: Destinee Del Real [facility] APPROVED REPORT EXAM: Two-dimensional and M-mode echocardiogram with Doppler and color Doppler. Other Information Quality : Good Rhythm : NSR INDICATION Atrial Fibrillation 2D DIMENSIONS Left Atrium(2D)3.3 (1.6-4.0cm)IVSd1.1 (0.7-1.1cm) Aortic Root(2D)2.8 (2.0-3.7cm)LVDd4.2 (3.9-5.9cm) LVOT Diameter2.0 (1.8-2.4cm)PWd0.9 (0.7-1.1cm) LVDs2.3 (2.5-4.0cm)FS (%) 30.0 % SV60.0 mlLVEF(%)60.0 (>50%) Aortic Valve AoV Peak Isaac.174.2cm/sAoV VTI31.8cm AO Peak GR.12.1mmHgLVOT Peak Isaac.161.2cm/s LVOT VTI 29.40cmAO Mean GR.6mmHg MARTHA (VMAX)3.26ma6CIU (VTI)3.00cm2 Mitral Valve MV E Syqotvpe55.0cm/sMV DECEL [id number] MV A Iujhxset18.2cm/sE/A Ratio0.8 Tricuspid Valve TR P. Brolrims565gp/sRAP WFJCLBIW7miZr TR Peak Gr.90keHtXSUM72npYt Pulmonary Vein S1 Wkdehytn68.9cm/sD2 Ctwyawxj67.0cm/s LEFT VENTRICLE The left ventricle is normal size. There is normal left ventricular wall thickness. The left ventricu lar systolic function is normal and the ejection fraction is within normal range. The Ejection Fracti on is 60-65%. There is normal LV segmental wall motion. Transmitral Doppler flow pattern is Grade I-a bnormal relaxation pattern. RIGHT VENTRICLE The right ventricle is normal size. The right ventricular systolic function is normal. ATRIA The left atrium size is normal. The right atrium size is normal. The interatrial septum is intact wit h no evidence for an atrial septal defect or patent foramen ovale as noted on 2-D or Doppler imaging. AORTIC VALVE The aortic valve is calcified but opens well. Doppler and Color Flow revealed trace aortic regurgitat ion. There is no significant aortic valvular stenosis. MITRAL VALVE The mitral valve is calcified but opens well. There is no evidence of mitral valve prolapse. There is no mitral valve stenosis. Doppler and Color-flow revealed trace mitral regurgitation. TRICUSPID VALVE The tricuspid valve is normal in structure and function. Doppler and Color Flow revealed trace tricus pid regurgitation. The PA pressure was estimated at 30 mmHg. There is no tricuspid valve stenosis. PULMONIC VALVE The pulmonic valve is not well visualized. Doppler and Color Flow revealed mild pulmonic valvular reg urgitation. There is no pulmonic valvular stenosis. GREAT VESSELS The aortic root is normal in size. The ascending aorta is moderately dilated at 4.0 cm. The IVC is no rmal in size and collapses >50% with inspiration. PERICARDIAL EFFUSION There is no evidence of significant pericardial effusion. Critical Notification Critical Value: No <Conclusion> The left ventricular systolic function is normal and the ejection fraction is within normal range. Th e Ejection Fraction is 60-65%. There is normal LV segmental wall motion. The ascending aorta is moderately dilated at 4.0 cm. Signed by : Michelle Youngblood, Electronically Approved : 11/10/2019 12:10:39
== END | disposition home or self-care (01) ==
LOC: ECHO 10:21
PROVIDERS: ATTEND Internal Medicine Cardiovascular Disease
DX: I08.8 Other rheumatic multiple valve diseases (principal); I48.91 Unspecified atrial fibrillation
CPT/HCPCS: 93306

== ENCOUNTER → 2020-10-05 | Outpatient (CLI) | payer MEDICARE, BC ==
--- NOTE | 2020-10-05 14:19 | RAD ---
EXAM: Right shoulder, 3 views. HISTORY: Pain. COMPARISON: None. FINDINGS: 3 views of the right shoulder obtained. There is no fracture, dislocation or subluxation. T here is mild acromioclavicular joint spurring. IMPRESSION: Mild acromioclavicular joint osteoarthritis. Electronically signed by: Angelique Jacobs MD (10/05/2020 2:17 PM) [id number]
== END ==
LOC: RAD 14:06
PROVIDERS: ATTEND Orthopaedic Surgery
DX: M19.011 Primary osteoarthritis, right shoulder (principal)
CPT/HCPCS: 73030

== ENCOUNTER 2020-12-10 11:47 | Emergency (ER) | payer MEDICARE, BC ==
[~2020-12-10] VITALS: Ht 182.9 cm; Wt 95.0 kg
[2020-12-10] MEDS ORDERED: CALCIUM GLUCONATE 1,000 MG/10 ML VIAL IV ONE (12:15)
[2020-12-10 12:36] LABS: BACTERIA,URINE 0 /HPF (0-FEW); CLARITY,URINE BLOODY; COLOR,URINE RED; RBC,URINE TNTC /HPF (0-2)
--- NOTE | 2020-12-10 12:41 | RAD ---
CT scan abdomen and pelvis without contrast 12/10/2020 CLINICAL HISTORY: Right flank pain. TECHNIQUE: Unenhanced, contiguous, 3 mm axial sections were obtained through the abdomen and pelvis. One or more of the following individualized dose reduction techniques were utilized for this study: 1. Automated exposure control. 2. Adjustment of the mA and/or kV according to patient size. 3. Use of iterative reconstruction technique. FINDINGS: Images through the lung bases demonstrate minimal dependent subsegmental atelectasis bilate rally. There is a large hiatal hernia. A 6.7 cm rounded low-attenuation lesion is seen involving the superior aspect of the liver which like ly represents a hepatic cyst. The spleen, pancreas and adrenal glands are within normal limits. Patchy areas of increased attenuation are seen within the medullary portions of both kidneys consiste nt with medullary nephrocalcinosis. Nonobstructing calculi are seen involving both kidneys which trevon ure 1 to 2 mm in size. Mild dilatation of the right intrarenal collecting system is seen. A somewhat oval shaped area of increased attenuation is seen within the medial aspect of the right intrarenal co llecting system which measures 2.4 cm in greatest diameter. This may represent a partially calcified renal calculus versus a hematoma. The right ureter is mildly dilated throughout its course. Within th e distal right ureter at the level of the right UVJ a 3 mm distal right ureteral calculus is seen. It is causing mild obstruction of the right collecting system. There is no evidence of obstruction of t he left collecting system. Mild atherosclerotic calcification abdominal aorta is seen. The abdominal aorta tapers normally. The gallbladder is contracted. No free fluid or free air is seen within the abdomen. There is no evidence of bowel obstruction. The appendix is well-visualized and is within normal limits. Images of the pelvis demonstrate the urinary bladder to be contracted. Calcifications are seen within the pelvis consistent with phleboliths. No free fluid is seen. Minimal S-shaped curvature of the thoracolumbar spine is seen. Degenerative changes are seen involvin g the lower thoracic and throughout the lumbar spine along with both hips. IMPRESSION: 3 mm distal right ureteral calculus is seen at the level of the right UVJ. It is causing mild obstruction of the right collecting system. Electronically signed by: Antonio Porter MD (12/10/2020 12:38 PM) [id number]
--- NOTE | 2020-12-10 12:46 | PHYS DOC ---
Past History Past Medical History: Asthma, GERD, Other Additional Past Medical Histor: NECK Past Surgical History: TURP, Other Additional Past Surgical Histo: WRIST Alcohol Use: None General Adult EDM: Chief Complaint: FLANK PAIN HPI: HPI: Patient is a 75-year-old male coming in for right flank pain since yesterday. States the pain comes and goes and is currently a 2 out of 10. Patient denies any dysuria but has noticed that he has had some blood in his urine. Denies any clots in his urine. Does not take any blood thinners. Has a history of prostate surgery about 6 months ago. Denies any history of kidney stones. Patient initially thought he strained his back working out, but rest was not making any better. Does not get worse with p.o. intake. Has had some nausea but no vomiting. States he is having regular bowel movements. Review of Systems: Review of Systems: Constitutional: Denies fever or chills Eyes: Denies change in visual acuity HENT: Denies nasal congestion or sore throat Respiratory: Denies cough or shortness of breath Cardiovascular: Denies chest pain or edema GI: Denies abdominal pain, nausea, vomiting, bloody stools or diarrhea : Denies dysuria Musculoskeletal: Denies back pain or joint pain Integument: Denies rash Neurologic: Denies headache, focal weakness or sensory changes Endocrine: Denies polyuria or polydipsia Lymphatic: Denies swollen glands Psychiatric: Denies depression or anxiety Current Medications: Current Meds: Current Medications Medications (Trade) Dose Ordered Sig/[facility] Start Time Stop Time Status Last Admin Dose Admin Calcium Gluconate (Calcium Gluconate) 1,000 mg 1X ONCE 12/10/20 12:15 12/10/20 12:12 DC Allergies: Allergies: Allergies Coded Allergies Type Severity Reaction Last Updated Verified No Known Drug Allergies 12/10/20 No Physical Exam: PE: Constitutional: Well developed, well nourished, no acute distress, non-toxic appearance. [] HENT: Normocephalic, atraumatic, bilateral external ears normal, oropharynx moist, no oral exudates, nose normal. [] Eyes: PERRLA, EOMI, conjunctiva normal, no discharge. [] Neck: Normal range of motion, no tenderness, supple, no stridor. [] Cardiovascular:Heart rate regular rhythm, no murmur [] Lungs & Thorax: Bilateral breath sounds clear to auscultation [] Abdomen: Bowel sounds normal, soft, no tenderness, no masses, no pulsatile masses. [] Skin: Warm, dry, no erythema, no rash. [] Back: No tenderness, no CVA tenderness. [] Extremities: No tenderness, no cyanosis, no clubbing, ROM intact, no edema. [] Neurologic: Alert and oriented X 3, normal motor function, normal sensory function, no focal deficits noted. [] Psychologic: Affect normal, judgement normal, mood normal. [] Current Patient Data: Labs: Laboratory Tests Test 12/10/20 12:11 Urine Collection Type Unknown Urine Color Red Urine Clarity Bloody Urine pH Urine Specific [place] Urine Protein (NEG-TRACE) Urine Glucose (UA) mg/dL (NEG) Urine Ketones (Stick) mg/dL (NEG) Urine Blood (NEG) Urine Nitrite (NEG) Urine Bilirubin (NEG) Urine Urobilinogen Dipstick mg/dL (0.2 mg/dL) Urine Leukocyte Esterase (NEG) Urine RBC Tntc /HPF (0-2) Urine WBC 5-10 /HPF (0-4) Urine Squamous Epithelial Cells None /LPF Urine Bacteria 0 /HPF (0-FEW) Urine Mucus Slight /LPF Vital Signs: Vital Signs Date Time Temp Pulse Resp B/P (MAP) Pulse Ox O2 Delivery O2 Flow Rate FiO2 12/10/20 11:51 98.2 71 18 161/92 97 Room Air EKG: EKG: [] Radiology/Procedures: Radiology/Procedures: [address] [address] IMAGING REPORT Signed PATIENT: ARIE MARTINEZ ACCOUNT: [id number] : 1945 LOCATION: ER AGE: 75 SEX: M EXAM STATUS: PRE ER ORD. PHYSICIAN: ROWDY CHICAS MD REASON: right flank pain, stone study PROCEDURE: CT ABDOMEN PELVIS WO CONTRAST CT scan abdomen and pelvis without contrast 12/10/2020 CLINICAL HISTORY: Right flank pain. TECHNIQUE: Unenhanced, contiguous, 3 mm axial sections were obtained through the abdomen and pelvis. One or more of the following individualized dose reduction techniques were utilized for this study: 1. Automated exposure control. 2. Adjustment of the mA and/or kV according to patient size. 3. Use of iterative reconstruction technique. FINDINGS: Images through the lung bases demonstrate minimal dependent subsegmental atelectasis bilaterally. There is a large hiatal hernia. A 6.7 cm rounded low-attenuation lesion is seen involving the superior aspect of the liver which likely represents a hepatic cyst. The spleen, pancreas and adrenal glands are within normal limits. Patchy areas of increased attenuation are seen within the medullary portions of both kidneys consistent with medullary nephrocalcinosis. Nonobstructing calculi are seen involving both kidneys which measure 1 to 2 mm in size. Mild dilatation of the right intrarenal collecting system is seen. A somewhat oval shaped area of increased attenuation is seen within the medial aspect of the right intrarenal collecting system which measures 2.4 cm in greatest diameter. This may represent a partially calcified renal calculus versus a hematoma. The right ureter is mildly dilated throughout its course. Within the distal right ureter at the level of the right UVJ a 3 mm distal right ureteral calculus is seen. It is causing mild obstruction of the right collecting system. There is no evidence of obstruction of the left collecting system. Mild atherosclerotic calcification abdominal aorta is seen. The abdominal aorta tapers normally. The gallbladder is contracted. No free fluid or free air is seen within the abdomen. There is no evidence of bowel obstruction. The appendix is well-visualized and is within normal limits. Images of the pelvis demonstrate the urinary bladder to be contracted. Calcifications are seen within the pelvis consistent with phleboliths. No free fluid is seen. Minimal S-shaped curvature of the thoracolumbar spine is seen. Degenerative changes are seen involving the lower thoracic and throughout the lumbar spine along with both hips. IMPRESSION: 3 mm distal right ureteral calculus is seen at the level of the right UVJ. It is causing mild obstruction of the right collecting system. Electronically signed by: Antonio Porter MD (12/10/2020 12:38 PM) [id number] DICTATED AND SIGNED BY: ANTONIO PORTER MD DATE: 12/10/20 1232 CC: ROWDY CHICAS MD; WISAM MORROW MD ~MTH0 0 [] Heart Score: C/O Chest Pain: No Risk Factors: Risk Factors: DM, Current or recent (<one month) smoker, HTN, HLP, family history of CAD, obesity. Risk Scores: Score 0 - 3: 2.5% MACE over next 6 weeks - Discharge Home Score 4 - 6: 20.3% MACE over next 6 weeks - Admit for Clinical Observation Score 7 - 10: 72.7% MACE over next 6 weeks - Early Invasive Strategies Course & Med Decision Making: Course & Med Decision Making Pertinent Labs and Imaging studies reviewed. (See chart for details) [] Dragon Disclaimer: Dragon Disclaimer: This electronic medical record was generated, in whole or in part, using a voice recognition dictation system. Departure Departure: Impression: Primary Impression: Kidney stone on right side Disposition: HOME / SELF CARE / HOMELESS Condition: STABLE Referrals: WISAM MORROW MD (PCP) Patient Instructions: Diet for Kidney Stones Additional Instructions: Follow-up with urologist and primary care provider. Scripts Tamsulosin Hcl (FLOMAX) 0.4 Mg Cap.er.24h 1 CAP PO DAILY for kidney stone for 10 Days, #10 CAP 0 Refills Prov: ROWDY CHICAS MD 12/10/20 Hydrocodone Bit/Acetaminophen (HYDROCODONE-APAP 5-325 ) 1 Each Tablet 1 TAB PO PRN Q6HRS PRN for PAIN, #10 TAB 0 Refills Prov: ROWDY CHICAS MD 12/10/20 ROWDY CHICAS MD Dec 10, 2020 12:46
[2020-12-10] MEDS ORDERED: TAMS0.4C97 PO (13:07)
[2020-12-10] MEDS ORDERED: HYDR-2155 PO (13:07)
[2020-12-10 13:20] VITALS: BP 158/88
== END 2020-12-10 13:26 | disposition home or self-care (01) ==
LOC: ER 11:47
DX: N20.0 Calculus of kidney (principal); J45.909 Unspecified asthma, uncomplicated; K21.9 Gastro-esophageal reflux disease without esophagitis
CPT/HCPCS: 74176; 81001; 87086; 99284

== ENCOUNTER 2020-12-12 20:57 | Emergency (ER) | payer MEDICARE, BC ==
[~2020-12-12] VITALS: Ht 182.9 cm; Wt 95.0 kg
[~2020-12-12 20:57] MED LIST changes: +HYDR-2155 PO
[2020-12-12] MEDS ORDERED: SODIUM PHOSPHATES 19/7GM 133 ML ENEMA. PR ONE (21:30)
[2020-12-12] MEDS ORDERED: MAGNESIUM CITRATE 296 ML SOLUTION. PO ONE (21:30)
[2020-12-12 21:32] LABS: BASO % 0 % (0-3); EOS # 0.2 x10^3/uL (0.0-0.7); EOS % 2 % (0-3); HEMATOCRIT 36.6 % (39.0-53.0); HEMOGLOBIN 11.9 g/dL (13.0-17.5); LYMPH # 0.8 x10^3/uL (1.0-4.8); LYMPH % 9 % (24-48); MEAN CORPUSCULAR HEMOGLOBIN 30 pg (25-35); MEAN CORPUSCULAR HGB CONC 32 g/dL (31-37); MEAN CORPUSCULAR VOLUME 91 fL (79-100); MONO # 0.7 x10^3/uL (0.0-1.1); MONO % 8 % (0-9); NEUT # 7.1 x10^3uL (1.8-7.7); NEUT % 80 % (31-73); PLATELET COUNT 173 x10^3/uL (140-400); RED BLOOD COUNT 4.02 x10^6/uL (4.30-5.70); RED CELL DISTRIBUTION WIDTH 14.9 % (11.5-14.5); WHITE BLOOD COUNT 8.9 x10^3/uL (4.0-11.0)
--- NOTE | 2020-12-12 21:36 | PHYS DOC ---
Past History Past Medical History: Asthma, GERD, Other Additional Past Medical Histor: NECK Past Surgical History: TURP, Other Additional Past Surgical Histo: WRIST Alcohol Use: None General Adult EDM: Chief Complaint: CONSTIPATION HPI: HPI: 75-year-old male presents with constipation. He tells me he has not had a bowel movement in at least 2 days likely 3. He was diagnosed recent with a kidney stone has been taking narcotic pain medications. He assumes this is what is causing constipation. He tried stool softeners without any relief. He is having some intermittent generalized abdominal cramping and feeling of gastric reflux. He decided he should come in for evaluation and possible cleanout. Patient denies fever or chills. He has no other specific complaints. Review of Systems: Review of Systems: Constitutional: Denies fever or chills Eyes: Denies change in visual acuity HENT: Denies nasal congestion or sore throat Respiratory: Denies cough or shortness of breath Cardiovascular: Denies chest pain or edema GI: Generalized abdominal cramping, constipation. : Denies dysuria Musculoskeletal: Denies back pain or joint pain Integument: Denies rash Neurologic: Denies headache, focal weakness or sensory changes Endocrine: Denies polyuria or polydipsia Lymphatic: Denies swollen glands Psychiatric: Denies depression or anxiety Current Medications: Current Meds: Current Medications Medications (Trade) Dose Ordered Sig/[facility] Start Time Stop Time Status Last Admin Dose Admin Magnesium Citrate (Citroma) 296 ml 1X ONCE 12/12/20 21:30 12/12/20 21:31 UNV Sodium Biphosphate/ Sodium Phosphate (Fleet Adult) 133 ml 1X ONCE 12/12/20 21:30 12/12/20 21:31 UNV Allergies: Allergies: Allergies Coded Allergies Type Severity Reaction Last Updated Verified No Known Drug Allergies 12/10/20 No Physical Exam: PE: Constitutional: Well developed, well nourished, no acute distress, non-toxic appearance. [] HENT: Normocephalic, atraumatic, bilateral external ears normal, oropharynx moist, no oral exudates, nose normal. [] Eyes: PERRLA, EOMI, conjunctiva normal, no discharge. [] Neck: Normal range of motion, no tenderness, supple, no stridor. [] Cardiovascular: Heart rate regular rhythm, no murmur [] Lungs & Thorax: Bilateral breath sounds clear to auscultation [] Abdomen: Bowel sounds normal, soft, mild generalized tenderness, no masses, no pulsatile masses. [] Skin: Warm, dry, no erythema, no rash. [] Back: No tenderness, no CVA tenderness. [] Extremities: No tenderness, no cyanosis, no clubbing, ROM intact, no edema. [] Neurologic: Alert and oriented X 3, normal motor function, normal sensory function, no focal deficits noted. [] Psychologic: Affect normal, judgement normal, mood normal. [] Current Patient Data: Vital Signs: Vital Signs Date Time Temp Pulse Resp B/P (MAP) Pulse Ox O2 Delivery O2 Flow Rate FiO2 12/12/20 21:12 97.8 18 173/90 EKG: EKG: [] Radiology/Procedures: Radiology/Procedures: [] Impressions: Exam: Abdomen one view INDICATION: Constipation TECHNIQUE: Supine view the abdomen Comparisons: None FINDINGS: Large amount of stool noted in the ascending colon. No suspicious masses or calcifications. Visualized osseous structures are unremarkable. IMPRESSION: Large amount stool noted in the colon Electronically signed by: Wing Bolaños MD (12/12/2020 9:59 PM) [facility] DICTATED AND SIGNED BY: WING BOLAÑOS MD DATE: 12/12/202157 CC: MYNOR CORONA DO; WISAM MORROW MD ~MTH0 0 Heart Score: C/O Chest Pain: N/A Risk Factors: Risk Factors: DM, Current or recent (<one month) smoker, HTN, HLP, family history of CAD, obesity. Risk Scores: Score 0 - 3: 2.5% MACE over next 6 weeks - Discharge Home Score 4 - 6: 20.3% MACE over next 6 weeks - Admit for Clinical Observation Score 7 - 10: 72.7% MACE over next 6 weeks - Early Invasive Strategies Course & Med Decision Making: Course & Med Decision Making Pertinent Labs and Imaging studies reviewed. (See chart for details) The patient's labs are significant for creatinine 1.7. This is similar to previous labs in the chart. He also has an elevated blood sugar but normal anion gap. We have given a liter normal saline. His abdominal imaging has shown constipation, no other significant acute findings. We have given him fl eets enema and magnesium citrate. He has had some output but not as much as he needs to have. This will likely take some time to move through. Patient feels comfortable with going home. He will follow-up with his primary doctor as needed. He is stable for discharge at this time. [] Dragon Disclaimer: Dragon Disclaimer: This electronic medical record was generated, in whole or in part, using a voice recognition dictation system. Departure Departure: Impression: Primary Impression: Constipation due to opioid therapy Disposition: HOME / SELF CARE / HOMELESS Condition: IMPROVED Referrals: WISAM MORROW MD (PCP) Patient Instructions: Constipation, Adult, [id number] MYNOR CORONA DO Dec 12, 2020 21:36
[2020-12-12] MEDS ORDERED: SODIUM PHOSPHATES 19/7GM 133 ML ENEMA. ONE (21:38)
[2020-12-12] MEDS ORDERED: MAGNESIUM CITRATE 296 ML SOLUTION. ONE (21:38)
[2020-12-12 21:43] LABS: CALCIUM 8.5 mg/dL (8.5-10.1); CREATININE 1.7 mg/dL (0.7-1.3); GFR 39.7; POTASSIUM 4.2 mmol/L (3.5-5.1)
[2020-12-12] MEDS ORDERED: IV NORMAL SALINE 1,000ML 1,000 ML IV ONE (21:45)
[2020-12-12 21:48] LABS: ALBUMIN 3.3 g/dL (3.4-5.0); ALBUMIN/GLOBULIN RATIO 0.9 (1.0-1.7); TOTAL BILIRUBIN 0.4 mg/dL (0.2-1.0); TOTAL PROTEIN 6.8 g/dL (6.4-8.2)
[2020-12-12 21:54] LABS: BILIRUBIN,URINE NEG (NEG); CLARITY,URINE HAZY; COLOR,URINE YELLOW; GLUCOSE,URINE >=1000 mg/dL (NEG)
[2020-12-12 21:55] LABS: BACTERIA,URINE 0 /HPF (0-FEW); NITRITE,URINE NEG (NEG); SQUAMOUS EPITHELIAL CELL,UR FEW /LPF; UROBILINOGEN,URINE 0.2 mg/dL (0.2 mg/dL)
--- NOTE | 2020-12-12 22:02 | RAD ---
Exam: Abdomen one view INDICATION: Constipation TECHNIQUE: Supine view the abdomen Comparisons: None FINDINGS: Large amount of stool noted in the ascending colon. No suspicious masses or calcifications. Visualized osseous structures are unremarkable. IMPRESSION: Large amount stool noted in the colon Electronically signed by: Wing Huang MD (12/12/2020 9:59 PM) DANN
[2020-12-13 01:06] VITALS: BP 159/100
== END 2020-12-13 01:06 | disposition home or self-care (01) ==
LOC: ER 20:57
DX: K59.03 Drug induced constipation (principal); T40.2X5A Adverse effect of other opioids, initial encounter; J45.909 Unspecified asthma, uncomplicated; K21.9 Gastro-esophageal reflux disease without esophagitis; Z87.442 Personal history of urinary calculi; Y92.89 Other specified places as the place of occurrence of the external cause
CPT/HCPCS: 36415; 74018; 80053; 81001; 85025; 87086; 96361; 96374; 99284; J3010; J7030

== ENCOUNTER 2021-01-03 00:30 | Emergency (ER) | payer MEDICARE, BC ==
[~2021-01-03] VITALS: Ht 182.9 cm; Wt 95.0 kg
[2021-01-03 00:55] VITALS: BP 145/89
[2021-01-03 01:25] LABS: BACTERIA,URINE FEW /HPF (0-FEW); BILIRUBIN,URINE NEG (NEG); CLARITY,URINE CLEAR; COLOR,URINE YELLOW; GLUCOSE,URINE NEG (NEG); NITRITE,URINE NEG (NEG); SQUAMOUS EPITHELIAL CELL,UR FEW /LPF; UROBILINOGEN,URINE 0.2 mg/dL (0.2 mg/dL)
--- NOTE | 2021-01-03 02:49 | PHYS DOC ---
Past History Past Medical History: Asthma, GERD, Other Additional Past Medical Histor: NECK Past Surgical History: TURP, Other Additional Past Surgical Histo: WRIST Alcohol Use: None Adult General Chief Complaint Chief Complaint: URINARY RETENTION HPI HPI Patient is a 75 year old male who presents with difficulty urinating. He feels that his bladder is full but when he goes only small amount comes out. He has to frequently urinate small amounts. He had kidney stones 2 weeks ago but it passed on his own and has seen urologist. This evening he noticed small amount of blood in his urine as well as pain in frequency described above. He denies any fever, nausea, vomiting, abdominal pain. Denies much back pain. He has no other complaints. Review of Systems Review of Systems Constitutional: Denies fever or chills [] Eyes: Denies change in visual acuity, redness, or eye pain [] HENT: Denies nasal congestion or sore throat [] Respiratory: Denies cough or shortness of breath [] Cardiovascular: No additional information not addressed in HPI [] GI: Denies abdominal pain, nausea, vomiting, bloody stools or diarrhea [] : Above-stated symptoms Musculoskeletal: Denies back pain or joint pain [] Integument: Denies rash or skin lesions [] Neurologic: Denies headache, focal weakness or sensory changes [] Endocrine: Denies polyuria or polydipsia [] All other systems were reviewed and found to be within normal limits, except as documented in this note. Family History Family History Unremarkable Allergies Allergies Allergies Coded Allergies Type Severity Reaction Last Updated Verified No Known Drug Allergies 01/03/21 No Physical Exam Physical Exam Constitutional: No acute distress, non-toxic appearance. [] HENT: Normocephalic, atraumatic, bilateral external ears normal, oropharynx moist, no oral exudates, nose normal. [] Eyes: PERRLA, EOMI, conjunctiva normal, no discharge. [] Neck: Normal range of motion, no tenderness, supple, Cardiovascular:Heart rate regular rhythm, no murmur [] Lungs & Thorax: Bilateral breath sounds clear to auscultation [] Abdomen: Bowel sounds normal, soft, no tenderness, some fullness in the bladder area. Skin: Warm, dry, no erythema, no rash. [] Back: No tenderness, no CVA tenderness. [] Extremities: No tenderness, no cyanosis, no clubbing, ROM intact, no edema. [] Neurologic: Alert and oriented X 3, normal motor function, normal sensory function, no focal deficits noted. [] Psychologic: Affect normal, judgement normal, mood normal. [] Current Patient Data Vital Signs Vital Signs Date Time Temp Pulse Resp B/P (MAP) Pulse Ox O2 Delivery O2 Flow Rate FiO2 01/03/21 00:55 98.6 88 145/89 Lab Results Laboratory Tests Test 01/03/21 00:55 Urine Collection Type Unknown Urine Color Yellow Urine Clarity Clear Urine pH 5.5 Urine Specific [place] 1.010 Urine Protein Neg (NEG-TRACE) Urine Glucose (UA) Neg mg/dL (NEG) Urine Ketones (Stick) Neg mg/dL (NEG) Urine Blood Mod (NEG) Urine Nitrite Neg (NEG) Urine Bilirubin Neg (NEG) Urine Urobilinogen Dipstick 0.2 mg/dL (0.2 mg/dL) Urine Leukocyte Esterase Trace (NEG) Urine RBC 1-2 /HPF (0-2) Urine WBC 5-10 /HPF (0-4) Urine Squamous Epithelial Cells Few /LPF Urine Bacteria Few /HPF (0-FEW) EKG EKG [] Radiology/Procedures Radiology/Procedures [] Heart Score C/O Chest Pain: No Risk Factors: Risk Factors: DM, Current or recent (<one month) smoker, HTN, HLP, family history of CAD, obesity. Risk Scores: Risk Factors: DM, Current or recent (<one month) smoker, HTN, HLP, family history of CAD, obesity. Course & Med Decision Making Course & Med Decision Making Patient had presented with urinary retention and some pain with history of kidney stone. CT scan of the abdomen pelvis without contrast done per radiologist shows previously resolved 3 mm calculus but otherwise decreasing hydronephrosis and no acute blockage. Patient tried voiding in the emergency department several times and each time he got 30 cc or so urine output. The po st void assessment done showed that he still had 700 mL of urine in his bladder. I discussed with patient the need to place Driscoll and leave it in place. He understands it and agreed to have it done. He had a Driscoll catheter placed which output clear urine approximately 700 mL. He felt significantly better. He is going to follow-up with his urologist. Alfredo Disclaimer Dragon Disclaimer This electronic medical record was generated, in whole or in part, using a voice recognition dictation system. Departure Departure: Referrals: WISAM MORROW MD (PCP) DONAL LENNON MD Jan 03, 2021 02:49
[2021-01-03] MEDS ORDERED: LIDOCAINE 2% JELLY 6ML IN APPLICATOR. ONE (03:15)
--- NOTE | 2021-01-03 03:22 | RAD ---
CT abdomen and pelvis without contrast PQRS statement: CT scans at this facility use dose reduction including either automated exposure cont rol, iterative reconstructions, and /or weight based radiation dosing via mA and kV modification when appropriate to reduce radiation dose to as low as reasonably achievable. HISTORY: Kidney stone. Right-sided pain. COMPARISON: CT abdomen and pelvis December 10, 2020 Abdomen findings: Hiatal hernia of most of the stomach. Lung bases unremarkable. Mild changes of lowe r thoracic and lumbar disc disease. Right hepatic lobe 6 cm cyst stable density of 12 units. Gallblad vilma, pancreas, adrenals, spleen unremarkable. Tiny bilateral renal calculi measuring 1 to 3 mm in siz e. There is decreased right renal hydronephrosis since the prior exam with mild persistent distention of the right renal pelvis and calyces and upper ureter remaining as well as mild persistent edema, t he distal right ureteral 3 mm calculus on the prior exam has since passed and the larger right renal pelvis and lower pole calyx 1 cm density in the prior study has since resolved. Gallbladder, adrenals , pancreas and spleen are unremarkable. No obstruction or inflammation GI tract. Appendix is negative . No abdominal fluid. Pelvis findings: Pelvic phleboliths. No distal ureteral calculi or bladder calculi. There may be prio r TURP of the prostate. Rectum and bones are unremarkable. No pelvic fluid. IMPRESSION: 1. The distal right ureteral 3 mm calculus on the prior exam has since passed and the hydronephrosis has decreased. See above. 2. Bilateral nephrolithiasis. Appendix is negative. 3. Other chronic findings are stable as described above. Electronically signed by: Baldo Lawrence MD (01/03/2021 3:20 AM) [facility]
== END 2021-01-03 03:45 | disposition home or self-care (01) ==
LOC: ER 00:30
DX: R33.8 Other retention of urine (principal); R31.9 Hematuria, unspecified; R35.0 Frequency of micturition; J45.909 Unspecified asthma, uncomplicated; K21.9 Gastro-esophageal reflux disease without esophagitis
CPT/HCPCS: 51702; 74176; 81001; 87086; 99284; 99285

== ENCOUNTER → 2021-01-04 | Outpatient (CLI) | payer MEDICARE, BC ==
[2021-01-03 00:55] VITALS: BP 145/89
[~2021-01-04] MED LIST changes: +LEVO500T8 PO; +REGADENOSON 0.4 MG/5 ML DISP.SYRIN. IV ONE
--- NOTE | 2021-01-04 13:17 | RAD ---
MR#: [id number] Date of Study: 01/04/2021 Ordering Physician: MICHELLE YOUNGBLOOD, Referring Physician: NIC VALLECILLO Tech: RT Denise Vee) (N) APPROVED REPORT Test Type: Pharmacological Stress Nurse/Tech: RT Mariusz (Aissatou) (N) Test Indications: dyspnea and fatigue Cardiac History: AFib 1 year ago Medications: see ehr Medical History: hypertension Resting ECG: sinus rhythm Resting Heart Rate: 68 bpm Resting Blood Pressure: 137/77mmHg Pretest Chest Pain: None Nurse/Tech Notes Consent: The procedure was explained to the patient in lay terms. Informed consent was witnessed. Nicholas eout was entered into [facility]. History and Stress Test performed by RT Denise Vee) (N) Pharm. Details Pharmacologic stress testing was performed using 0.4mg per 5ml of regadenoson given intravenously ove r 7-10 seconds. POST EXERCISE Reason for Termination: Infusion complete Max HR: 158 bpm Max Blood Pressure: 141/69mmHg INTERPRETATION Stress EKG Conclusion: The resting EKG shows a sinus rhythm with nonspecific ST-T wave changes. The stress EKG shows no significant changes from baseline. No EKG evidence of stress-induced ischemia. Imaging Protocol IMAGE PROTOCOL: Rest Tc-99m/stress Tc-99m 1 day Rest: Stress: Viability: Radiopharm.Tc99m BlbttdliuPd91y Sestamibi [id number] 31mCi Duration 15min. 10min. Img Date 01/04/2021 01/04/2021 Inj-Img [id number]. 60min. Rest Admin Site:IV - Right AntecubitalAdministrator: RT Mariusz (Aissatou)(N) Stress Admin Site: IV - Right AntecubitalAdministrator: RT Denise Vee)(N) STRESS DATA End Diast. Vol.122.0mlAv. Heart Rate83.0bpm End Syst. Vol.28.0mlCO Index BSA0.0L/min Myocardial Xffd380.0gEject. Sfodilou94.0% Stress Rates Pk. Fill Rate3.72EDV/secLVtime Pk. Fill 205.42msec Pk. Empty Rate4.77ESV/secLVtime Pk. Rahee166.95msec 1/3 Pk. Fill1.43EDV/sec Stress Scores Regional WT0.00Summed WT0.00 Regional WM0.00Summed WM1.00 LV Perfusion The stress scans show no significant defects. The rest scans show no significant defects. Nuclear imaging shows no reversible ischemia or infarct. Wall Motion Left ventricular systolic function is normal with no regional wall motion abnormalities and an ejecti on fraction of greater than 70%. LV Perf. Quant 17 Seg. SSS2.00 17 Seg. SRS3.00 17 Seg. SDS0.00 Stress Defect Extent (% LAD)0.00Rest Defect Extent (% LAD)0.00Rev. Defect Extent (% LAD)0.00 Stress Defect Extent (% LCX) 18.80Rest Defect Extent (% LCX)26.30Rev. Defect Extent (% LCX)6.30 Stress Defect Extent (% RCA)0.00Rest Defect Extent (% RCA)8.90Rev. Defect Extent (% RCA)0.00 Stress Defect Extent (% SERINA)3.30Rest Defect Extent (% SERINA)8.00Rev. Defect Extent (% SERINA)1.10 Conclusion 1. No EKG evidence of stress-induced ischemia. 2. Nuclear imaging shows no reversible ischemia or infarct. 3. Left ventricular systolic function is normal with an ejection fraction of greater than 70%. 4. Low risk Lexiscan nuclear stress test. Signed by : Modesto Drake MD Electronically Approved : 01/04/2021 13:17:48
== END ==
LOC: NM 07:41
PROVIDERS: ATTEND Internal Medicine Cardiovascular Disease
DX: R06.00 Dyspnea, unspecified (principal)
CPT/HCPCS: 78452; 93017; A9500; J2785

== ENCOUNTER 2021-01-06 15:51 | Emergency (ER) | payer MEDICARE, BC ==
[~2021-01-06] VITALS: Ht 182.9 cm; Wt 95.0 kg
[~2021-01-06 15:51] MED LIST changes: -LEVO500T8 PO; -REGADENOSON 0.4 MG/5 ML DISP.SYRIN. IV ONE
--- NOTE | 2021-01-06 16:37 | PHYS DOC ---
Past History Past Medical History: Asthma, GERD, Other Additional Past Medical Histor: NECK Past Surgical History: TURP, Other Additional Past Surgical Histo: WRIST Alcohol Use: None General Adult EDM: Chief Complaint: URINE CATHETER PROBLEM HPI: HPI: 75-year-old male presents with concern about his Driscoll catheter. The patient has noticed some sediment in the urine. He is also had some spasms of the bladder and wants to make sure things are working properly. He thought he had a fever at home. No fever on arrival. He has no other concerns at this time. Review of Systems: Review of Systems: Constitutional: Denies fever or chills Eyes: Denies change in visual acuity HENT: Denies nasal congestion or sore throat Respiratory: Denies cough or shortness of breath Cardiovascular: Denies chest pain or edema GI: Denies abdominal pain, nausea, vomiting, bloody stools or diarrhea : Urinary issues Musculoskeletal: Denies back pain or joint pain Integument: Denies rash Neurologic: Denies headache, focal weakness or sensory changes Endocrine: Denies polyuria or polydipsia Lymphatic: Denies swollen glands Psychiatric: Denies depression or anxiety Allergies: Allergies: Allergies Coded Allergies Type Severity Reaction Last Updated Verified No Known Drug Allergies 01/03/21 No Physical Exam: PE: Constitutional: Well developed, well nourished, no acute distress, non-toxic ap pearance. [] HENT: Normocephalic, atraumatic, bilateral external ears normal, oropharynx moist, no oral exudates, nose normal. [] Eyes: PERRLA, EOMI, conjunctiva normal, no discharge. [] Neck: Normal range of motion, no tenderness, supple, no stridor. [] Cardiovascular:Heart rate regular rhythm, no murmur [] Lungs & Thorax: Bilateral breath sounds clear to auscultation [] Abdomen: Bowel sounds normal, soft, no tenderness, no masses, no pulsatile masses. [] Skin: Warm, dry, no erythema, no rash. [] Back: No tenderness, no CVA tenderness. [] Extremities: No tenderness, no cyanosis, no clubbing, ROM intact, no edema. [] Neurologic: Alert and oriented X 3, normal motor function, normal sensory function, no focal deficits noted. [] Psychologic: Affect normal, judgement normal, mood normal. : Driscoll catheter in place. [] Current Patient Data: Vital Signs: Vital Signs Date Time Temp Pulse Resp B/P (MAP) Pulse Ox O2 Delivery O2 Flow Rate FiO2 01/06/21 15:58 98.9 87 16 151/91 95 Room Air EKG: EKG: [] Radiology/Procedures: Radiology/Procedures: [] Heart Score: C/O Chest Pain: N/A Risk Factors: Risk Factors: DM, Current or recent (<one month) smoker, HTN, HLP, family history of CAD, obesity. Risk Scores: Score 0 - 3: 2.5% MACE over next 6 weeks - Discharge Home Score 4 - 6: 20.3% MACE over next 6 weeks - Admit for Clinical Observation Score 7 - 10: 72.7% MACE over next 6 weeks - Early Invasive Strategies Course & Med Decision Making: Course & Med Decision Making Pertinent Labs and Imaging studies reviewed. (See chart for details) The patient's urinalysis is positive for nitrate and leukocyte esterase. He has a lot of bacteria and white cells. Given the Driscoll catheter, I will treat him with levofloxacin 500. We will give the first dose in the ED. He is stable for discharge at this time. [] Dragon Disclaimer: Dragon Disclaimer: This electronic medical record was generated, in whole or in part, using a voice recognition dictation system. Departure Departure: Impression: Primary Impression: UTI (urinary tract infection) Qualified Codes: T83.511A - Infection and inflammatory reaction due to indwelling urethral catheter, initial encounter; N39.0 - Urinary tract infection, site not specified Disposition: HOME / SELF CARE / HOMELESS Condition: STABLE Referrals: WISAM MORROW MD (PCP) Patient Instructions: Catheter-Associated Urinary Tract Infection FAQs - GUILLEN, Urinary Tract Infection Scripts Levofloxacin (LEVOFLOXACIN) 500 Mg Tablet 1 TAB PO DAILY for UTI, #7 TAB Prov: MYNOR CORONA DO 01/06/21 MYNOR CORONA DO Jan 06, 2021 16:37
[2021-01-06 17:27] LABS: BILIRUBIN,URINE NEG (NEG); CLARITY,URINE CLOUDY; COLOR,URINE YELLOW; GLUCOSE,URINE NEG (NEG)
[2021-01-06 17:28] LABS: BACTERIA,URINE MANY /HPF (0-FEW); NITRITE,URINE POS (NEG); SQUAMOUS EPITHELIAL CELL,UR FEW /LPF; UROBILINOGEN,URINE 0.2 mg/dL (0.2 mg/dL); WBC,URINE 20-40 /HPF (0-4)
[2021-01-06] MEDS ORDERED: LEVO500T8 PO (17:41)
[2021-01-06] MEDS ORDERED: levoFLOXacin 500 MG TABLET PO ONE (17:45)
[2021-01-06] MEDS ORDERED: levoFLOXacin 500 MG TABLET ONE (17:45)
[2021-01-06 17:55] VITALS: BP 150/87
== END 2021-01-06 17:52 | disposition home or self-care (01) ==
LOC: ER 15:51
DX: T83.511A Infection and inflammatory reaction due to indwelling urethral catheter, initial encounter (principal); N39.0 Urinary tract infection, site not specified; J45.909 Unspecified asthma, uncomplicated; K21.9 Gastro-esophageal reflux disease without esophagitis
CPT/HCPCS: 51702; 81001; 87086; 99283

== ENCOUNTER 2021-01-12 09:59 | Emergency (ER) | payer MEDICARE, BC ==
[2021-01-12] VITALS (8 sets, daily range): BP systolic 126–162; BP diastolic 45–83
[~2021-01-12] VITALS: Ht 182.9 cm; Wt 95.0 kg
[~2021-01-12 09:59] MED LIST changes: +LEVO500T8 PO
--- NOTE | 2021-01-12 11:26 | PHYS DOC ---
Past History Past Medical History: Asthma, GERD, Other Additional Past Medical Histor: NECK (MK JORGE APRN) Past Surgical History: TURP, Other Additional Past Surgical Histo: WRIST (MK JORGE APRN) Alcohol Use: None (MK JORGE APRN) Adult General Chief Complaint Chief Complaint: DIZZY/LIGHT HEADED HPI HPI Patient is a [75-year-old male patient presents feeling lightheaded. States he has felt like this for approximately last week. States he has seen his primary care provider yesterday for removal of his Driscoll catheter, he had a Driscoll catheter placed for urinary retention recently. Reports he was diagnosed with urinary tract infection and started on Levaquin 1 week ago as well. States he has had no fevers since the first day when he was diagnosed with a UTI. States no additional changes to his medicines, he does report he has a history of prior A. fib episode approximate 1 year ago when he was started started on diltiazem. States no nausea, no vomiting, states some constipation related to his Levaquin use, he has been taking stool softener. Denies change in urination, states he has been urinating normally, to 3 times at night as he has been. Denies any feeling of the room spinning states however when he is moving around he just feels his head getting wider. States he has also had some exertional dyspnea and exertional fatigue, where he used to build to mow the lawn without problems and now he has had to stop and rest after trying to move or walk a little bit. Reports while he was standing in the kitchen today, he had to sit down because he was feeling fatigued. Denies any chest pain, however he does report for the last couple weeks he has had some intermittent chest heaviness. He has an echocardiogram scheduled for next week with [place] [facility]. (MK JORGE APRN) Review of Systems Review of Systems Constitutional: Denies fever or chills [] Eyes: Denies change in visual acuity, redness, or eye pain [] HENT: Denies nasal congestion or sore throat [] Respiratory: Denies cough. Does state some exertional shortness of breath intermittently, denies at this current moment. Cardiovascular: No additional information not addressed in HPI [] GI: Denies abdominal pain, nausea, vomiting, bloody stools or diarrhea [] does states intermittent constipation since he is been on Levaquin : Denies dysuria or hematuria [] reports recent UTI, he is on Levaquin currently, states no current symptoms Musculoskeletal: Denies back pain or joint pain [] Integument: Denies rash or skin lesions [] Neurologic: Denies headache, focal weakness or sensory changes [] does report lightheadedness, states the lightheadedness occurs when he moves around or stands. Endocrine: Denies polyuria or polydipsia [] All other systems were reviewed and found to be within normal limits, except as documented in this note. (MK JORGE APRN) Allergies Allergies Allergies Coded Allergies Type Severity Reaction Last Updated Verified No Known Drug Allergies 01/03/21 No (MK JORGE APRN) Physical Exam Physical Exam Constitutional: Well developed, well nourished, no acute distress, non-toxic appearance. [] HENT: Normocephalic, atraumatic, bilateral external ears normal, oropharynx moist, no oral exudates, nose normal. [] Eyes: PERRLA, EOMI, conjunctiva normal, no discharge. [] Neck: Normal range of motion, no tenderness, supple, no stridor. [] Cardiovascular:Heart rate regular rhythm, no murmur [] Lungs & Thorax: Bilateral breath sounds clear to auscultation [] Abdomen: Bowel sounds normal, soft, no tenderness, no masses, no pulsatile masses. [] Skin: Warm, dry, no erythema, no rash. [] Back: No tenderness, no CVA tenderness. [] Extremities: No tenderness, no cyanosis, no clubbing, ROM intact, no edema. [] Neurologic: Alert and oriented X 3, normal motor function, normal sensory function, no focal deficits noted. [] Psychologic: Affect normal, judgement normal, mood normal. [] (MK JORGE APRN) Current Patient Data Vital Signs Vital Signs Date Time Temp Pulse Resp B/P (MAP) Pulse Ox O2 Delivery O2 Flow Rate FiO2 01/12/21 10:57 98.5 78 16 119/64 98 Room Air (MK JORGE APRN) EKG EKG [] Sinus rhythm without ST changes @ 76. Left axis deviation. Prolonged NM @ 216 ms QRS 58. QTc 434. No STEMI per Dr. Kendall (MK JORGE APRN) Radiology/Procedures Radiology/Procedures PATIENT: ARIE MARTINEZ GACCOUNT: [id number]#: [id number] : 1945 LOCATION: ER AGE: 75 SEX: M EXAM STATUS: REG ER ORD. PHYSICIAN: MK JORGE APRN REASON: dizziness PROCEDURE: CT HEAD WO CONTRAST EXAM: Head CT without contrast. HISTORY: Dizziness. TECHNIQUE: Computed tomographic images of the head were obtained without contrast. *One or more of the following individualized dose reduction techniques were utilized for this examination: 1. Automated exposure control. 2. Adjustment of the mA and/or kV according to patient size. 3. Use of iterative reconstruction technique. COMPARISON: None. FINDINGS: There is no acute or subacute extra-axial or intraparenchymal hemorrhage. There is no mass effect or midline shift. There is no hydrocephalus. The tinajero-white matter differentiation pattern is intact. There is a right maxillary sinus mucous retention cyst. There is mild bilateral ethmoid sinus mucosal thickening. The orbits and mastoid air cells are unremarkable. There is no suspicious calvarial lesion. IMPRESSION: No acute intracranial findings. Electronically signed by: Angelique Gallagher MD (01/12/2021 11:46 AM) [id number] DICTATED AND SIGNED BY: ANGELIQUE GALLAGHER MD DATE: 01/12/21 1145 CC: JONES KENDALL DO; MK JORGE APRN; WISAM MORROW MD ~MTH0 0 []PATIENT: ARIE MARTINEZ GACCOUNT: [id number]#: [id number] : 1945 LOCATION: ER AGE: 75 SEX: M EXAM STATUS: REG ER ORD. PHYSICIAN: MK JORGE APRN REASON: SOA PROCEDURE: CHEST AP ONLY EXAM: Chest, single view. HISTORY: Shortness of air. COMPARISON: None. FINDINGS: A frontal view of the chest is obtained. There is no infiltrate, pleural effusion or pneumothorax. The heart is normal in size. There is a large hiatal hernia. IMPRESSION: No acute pulmonary finding. Electronically signed by: Angelique Gallagher MD (01/12/2021 11:43 AM) [id number] DICTATED AND SIGNED BY: ANGELIQUE GALLAGHER MD DATE: 01/12/21 1143 CC: JONES KENDALL DO; MK JORGE APRN; WISAM MORROW MD ~MTH0 0 (MK JORGE APRN) Heart Score C/O Chest Pain: No HEART Score for Chest Pain: HEART Score for Chest Pain Response (Comments) Value History Moderately Suspicious 1 ECG Normal 0 Age > 65 2 Risk Factors 1 or 2 Risk Factors 1 Troponin < Normal Limit 0 Total 4 Risk Factors: Risk Factors: DM, Current or recent (<one month) smoker, HTN, HLP, family history of CAD, obesity. Risk Scores: Risk Factors: DM, Current or recent (<one month) smoker, HTN, HLP, family history of CAD, obesity. (MK JORGE APRN) Course & Med Decision Making Course & Med Decision Making Pertinent Labs and Imaging studies reviewed. (See chart for details) [] @ 1200 Given hemoglobin 7.4 with dizziness, malaise, dyspnea, will transfuse unit of blood this time. Patient reports he had quite a bit of bleeding following his bladder infection and urinary catheterization, with several large blood clots noted at the time. States no further bleeding at this time however has felt some discomfort and malaise since that time. Denies any blood in his stool. @1715 Continue awaiting blood from blood bank. Patient remains resting calmly in room at this time. @1930 - Blood transfusion complete. patient reporting he feels better. Will plan to discharge at this time, with Rx for Iron tablets, and patient to follow up with PCP for re-evaluation in 1 week. Urgent follow up or return to ER if any return of hematuria. (MK JORGE APRN) Course & Med Decision Making I was the Attending physician on the above date of service of this patient. This patient was evaluated, examined, treated, and dispositioned from the emergency department by the mid-level practitioner. Patient had not received any blood at my time of shift and 6 PM 01/12/2021. Signout was given to oncoming physician who will resume roles of attending physician after my shift. Electronically signed, Jones Kendall DO (TIMBI-SHA SHOSHONE,JONES DO) Dragon Disclaimer Dragon Disclaimer This electronic medical record was generated, in whole or in part, using a voice recognition dictation system. (MK JORGE APRN) Departure Departure: Impression: Primary Impression: Acute anemia Additional Impression: Lightheaded Disposition: HOME / SELF CARE / HOMELESS Condition: STABLE Referrals: WISAM MORROW MD (PCP) Patient Instructions: Anemia, FAQs Additional Instructions: As discussed, start taking the Iron pills daily to help improve your blood count and improve your anemia. You may take them with your other vitamins in the morning If you take it with [place] juice, your body can better utilize it It is likely to make your stools more dark Continue to take your antibiotic you had been taking, until it is completed. Follow up with your primary care provider in the next week to see if you are improving. If you have additional bleeding in your urine or elsewhere, follow up with your primary care provider sooner, or return to the ER. Keep your follow up appointment with your [facility] for your echocardiogram Scripts Ferrous Sulfate (BUCKY-TIME) 325 Mg Tablet 325 MG PO DAILY for anemia for 30 Days, #30 TAB Prov: MK JORGE APRN 01/12/21 Problem Qualifiers MK JORGE APRN Jan 12, 2021 11:26 JONES KENDALL DO Jan 13, 2021 16:15
--- NOTE | 2021-01-12 11:46 | RAD ---
EXAM: Chest, single view. HISTORY: Shortness of air. COMPARISON: None. FINDINGS: A frontal view of the chest is obtained. There is no infiltrate, pleural effusion or pneumo thorax. The heart is normal in size. There is a large hiatal hernia. IMPRESSION: No acute pulmonary finding. Electronically signed by: Angelique Jacobs MD (01/12/2021 11:43 AM) [id number]
--- NOTE | 2021-01-12 11:49 | RAD ---
EXAM: Head CT without contrast. HISTORY: Dizziness. TECHNIQUE: Computed tomographic images of the head were obtained without contrast. *One or more of the following individualized dose reduction techniques were utilized for this examina tion: 1. Automated exposure control. 2. Adjustment of the mA and/or kV according to patient size. 3. Use of iterative reconstruction technique. COMPARISON: None. FINDINGS: There is no acute or subacute extra-axial or intraparenchymal hemorrhage. There is no mass effect or midline shift. There is no hydrocephalus. The tinajero-white matter differentiation pattern is intact. There is a right maxillary sinus mucous rete ntion cyst. There is mild bilateral ethmoid sinus mucosal thickening. The orbits and mastoid air cell s are unremarkable. There is no suspicious calvarial lesion. IMPRESSION: No acute intracranial findings. Electronically signed by: Angelique Jacobs MD (01/12/2021 11:46 AM) [id number]
--- NOTE | 2021-01-12 11:51 | EKG ---
[address] [address] Test Date: 2021-01-12 Test Time: 11:19:01 Pat Name: ARIE MARTINEZ Department: Room: Gender: M Bar Waiter/Waitress: 1 : 1945 Requested By: JONES KENDALL Order Number: [id number] Reading MD: Measurements Intervals [place] Rate: 76 P: 0 UT: 218 QRS: -12 QRSD: 88 T: 14 QT: 382 QTc: 434 Interpretive Statements SINUS RHYTHM PROLONGED UT INTERVAL LEFTWARD AXIS ABNORMAL ECG RI6.02 No previous ECG available for comparison
[2021-01-12 12:08] LABS: BASO % 1 % (0-3); EOS # 0.2 x10^3/uL (0.0-0.7); EOS % 3 % (0-3); HEMATOCRIT 22.8 % (39.0-53.0); HEMOGLOBIN 7.4 g/dL (13.0-17.5); LYMPH # 0.8 x10^3/uL (1.0-4.8); LYMPH % 16 % (24-48); MEAN CORPUSCULAR HEMOGLOBIN 29 pg (25-35); MEAN CORPUSCULAR HGB CONC 33 g/dL (31-37); MEAN CORPUSCULAR VOLUME 88 fL (79-100); MONO # 0.4 x10^3/uL (0.0-1.1); MONO % 8 % (0-9); NEUT # 3.7 x10^3uL (1.8-7.7); NEUT % 73 % (31-73); PLATELET COUNT 230 x10^3/uL (140-400); RED CELL DISTRIBUTION WIDTH 15.1 % (11.5-14.5); WHITE BLOOD COUNT 5.1 x10^3/uL (4.0-11.0)
[2021-01-12 12:11] LABS: CALCIUM 8.5 mg/dL (8.5-10.1); CREATININE 1.3 mg/dL (0.7-1.3); GFR 54.1; POTASSIUM 4.3 mmol/L (3.5-5.1)
[2021-01-12 12:26] LABS: ALBUMIN 2.8 g/dL (3.4-5.0); MAGNESIUM 2.1 mg/dL (1.8-2.4); TOTAL BILIRUBIN 0.1 mg/dL (0.2-1.0); TOTAL PROTEIN 5.5 g/dL (6.4-8.2)
[2021-01-12 12:51] LABS: BACTERIA,URINE 0 /HPF (0-FEW); BILIRUBIN,URINE NEG (NEG); CLARITY,URINE CLEAR; COLOR,URINE YELLOW; GLUCOSE,URINE NEG (NEG); NITRITE,URINE NEG (NEG); RBC,URINE 0 /HPF (0-2); SQUAMOUS EPITHELIAL CELL,UR OCC /LPF; UROBILINOGEN,URINE 0.2 mg/dL (0.2 mg/dL)
[2021-01-12] MEDS ORDERED: FERR325T75 PO (19:34)
== END 2021-01-12 19:52 | disposition home or self-care (01) ==
LOC: ER 09:59
DX: D64.9 Anemia, unspecified (principal); R42 Dizziness and giddiness; J45.909 Unspecified asthma, uncomplicated; K21.9 Gastro-esophageal reflux disease without esophagitis
CPT/HCPCS: 36415; 36430; 70450; 71045; 80053; 81001; 82550; 82947; 83605; 83735; 83880; 84484; 85025; 86850; 86900; 86901; 86920; 93005; 99291; P9016; 99285-25

== ENCOUNTER → 2021-01-16 | Outpatient (CLI) | payer MEDICARE, BC ==
[2021-01-12 19:49] VITALS: BP 139/69
[~2021-01-16] MED LIST changes: +FERR325T75 PO
--- NOTE | 2021-01-16 15:00 | CARD ---
MR#: [id number] Date of Study: 01/16/2021 Ordering Physician: MICHELLE YOUNGBLOOD, Referring Physician: MICHELLE YOUNGBLOOD, Tech: Rosa Marley, [facility] APPROVED REPORT EXAM: Two-dimensional and M-mode echocardiogram with Doppler and color Doppler. Other Information Quality : AverageHR: 93bpm INDICATION Aortic Valve Disease Aortic Dilatation RISK FACTORS Hypertension Asthma 2D DIMENSIONS RVDd3.6 (2.9-3.5cm)Left Atrium(2D)2.7 (1.6-4.0cm) IVSd1.2 (0.7-1.1cm)Aortic Root(2D)3.7 (2.0-3.7cm) LVDd4.7 (3.9-5.9cm)LVOT Diameter2.0 (1.8-2.4cm) PWd1.0 (0.7-1.1cm)LVDs2.3 (2.5-4.0cm) FS (%) 50.4 %SV82.4 ml LVEF(%)81.7 (>50%) Aortic Valve AoV Peak Isaac.209.3cm/sAoV VTI40.1cm AO Peak GR.17.5mmHgLVOT Peak Isaac.160.1cm/s LVOT VTI 33.27cmAO Mean GR.9mmHg MARTHA (VMAX)2.93ph9FCA (VTI)2.55cm2 Mitral Valve MV E Klvixnlu05.9cm/sMV DECEL [id number] MV A Xyvdcnxw10.4cm/sE/A Ratio1.0 Pulmonary Valve PV Peak Yvnzpxhv66.1cm/sPV Peak Grad.4mmHg Tricuspid Valve TR P. Cqroyrjn520bh/sTR Peak Gr.35mmHg LEFT VENTRICLE The left ventricle is normal size. There is borderline to mild concentric left ventricular hypertroph y. The left ventricular systolic function is normal. The Ejection Fraction is 60-65%. There is normal LV segmental wall motion. Transmitral Doppler flow pattern is Grade I-abnormal relaxation pattern. RIGHT VENTRICLE The right ventricle is normal size. There is normal right ventricular wall thickness. The right ventr icular systolic function is normal. ATRIA The left atrium size is normal. The right atrium size is normal. The interatrial septum is intact wit h no evidence for an atrial septal defect or patent foramen ovale as noted on 2-D or Doppler imaging. AORTIC VALVE The aortic valve is normal in structure and function. Doppler and Color Flow revealed no significant aortic regurgitation. There is no significant aortic valvular stenosis. Calculated aortic valve area is 3.1 cm2 with maximum pressure gradient of 18 mmHg and mean pressure gradient of 9 mmHg. There is n o aortic valvular vegetation. MITRAL VALVE The mitral valve is normal in structure and function. There is the appearance of mitral valve systoli c anterior motion. There is no evidence of mitral valve prolapse. There is no mitral valve stenosis. Doppler and Color Flow revealed no mitral valve regurgitation noted. TRICUSPID VALVE The tricuspid valve is normal in structure and function. Doppler and Color Flow revealed trace tricus pid regurgitation with an estimated PAP of 37 mmHg. There is no tricuspid valve stenosis. PULMONIC VALVE The pulmonic valve is not well visualized. Doppler and Color Flow revealed trace pulmonic valvular re gurgitation. GREAT VESSELS The aortic root is normal in size. The ascending aorta is Mildly dilated measuring 4 cm. The IVC is n ormal in size and collapses >50% with inspiration. PERICARDIAL EFFUSION There is no evidence of significant pericardial effusion. Critical Notification Critical Value: No <Conclusion> The left ventricular systolic function is normal. The Ejection Fraction is 60-65%. There is normal LV segmental wall motion. Trace tricuspid regurgitation with an estimated PAP of 37 mmHg. The ascending aorta is mildly dilated measuring 4 cm. There is no evidence of significant pericardial effusion. Signed by : Jhonatan Simon, Electronically Approved : 01/16/2021 14:59:41
== END ==
LOC: ECHO 08:30
PROVIDERS: ATTEND Internal Medicine Cardiovascular Disease
DX: I77.810 Thoracic aortic ectasia (principal); I51.7 Cardiomegaly
CPT/HCPCS: 93306